=== PATIENT | male | born 1960 | race Caucasian/White ===

== ENCOUNTER 2017-03-10 10:06 | Emergency (ER) | payer BC ==
[2017-03-10 10:23] VITALS: BP 136/86
--- NOTE | 2017-03-10 11:15 | UC ---
General HPI - HPI Summary HPI Summary: FOR THE PAST SEVERAL WEEKS PT HAS NOTICED THAT AFTER 2-3 BITES OF FOOD HIS THROAT WILL BECOME TIGHT AND HE GETS THE HICCUPS. FOOD GOES DOWN - IS NOT GETTING STUCK BUT HE HAS TO LEAN FORWARD WHEN IT HAPPENS AND WAIT FOR A FEW MINUTES UNTIL IT PASSES BEFORE HE CAN EAT AGAIN. HAPPENS MOSTLY WITH HOT COOKED FOODS. NOT SO MUCH WITH LIQUIDS. - History of Current Complaint Chief Complaint: UCGI Stated Complaint: DIFFICULTY SWALLOWING Time Seen by Provider: 03/10/17 10:45 Hx Obtained From: Patient Onset/Duration: Gradual Onset, Lasting Weeks, Still Present Timing: Intermittent Episodes Lasting: Onset Severity: Moderate Current Severity: None Pain Intensity: 0 - NO PAIN AT PRESENT Associated Signs & Symptoms: Negative: Abdominal Pain, Back Pain, Cough, Decreased Oral Intake, Fever, Nausea, Wheezing - Allergy/Home Medications Allergies/Adverse Reactions: Allergies Allergy/AdvReac Type Severity Reaction Status Date / Time No Known Allergies Allergy Verified 03/10/17 10:23 Home Medications: Home Medications Canagliflozin (NF) [Invokana (NF)] 100 mg PO 03/10/17 [History] PMH/Surg Hx/FS Hx/Imm Hx Endocrine History Of: Reports: Diabetes - Type 2 diabetes Denies: Thyroid Disease Cardiovascular History Of: Denies: Cardiac Disorders, Hypertension Respiratory History Of: Reports: Asthma Denies: COPD GI/ History Of: Denies: Ulcer - Surgical History Surgical History: Yes Surgery Procedure, Year, and Place: Left lung lobectomy - Family History Known Family History: Positive: Diabetes - Social History Alcohol Use: Rare Substance Use Type: None Smoking Status (MU): Never Smoked Tobacco Review of Systems Constitutional: Negative Respiratory: Negative Cardiovascular: Negative Gastrointestinal: Other - DYSPHAGIA All Other Systems Reviewed And Are Negative: Yes Physical Exam Triage Information Reviewed: Yes Appearance: Well-Appearing, No Pain Distress, Well-Nourished Vital Signs: Initial Vital Signs Temp 98.5 F 03/10/17 10:13 Pulse 72 03/10/17 10:13 Resp 16 03/10/17 10:13 BP 136/86 03/10/17 10:13 Pulse Ox 98 03/10/17 10:13 Vital Signs Reviewed: Yes Eyes: Positive: Conjunctiva Clear ENT: Positive: Hearing grossly normal, Pharynx normal. Negative: Trismus Neck: Positive: Supple, Nontender, No Lymphadenopathy Respiratory: Positive: No respiratory distress, No accessory muscle use Cardiovascular: Positive: Pulses Normal Abdomen Description: Positive: Nontender, Soft Musculoskeletal: Positive: No Edema Neurological: Positive: Alert Psychological: Positive: Age Appropriate Behavior Skin: Negative: rashes Course/Dx - Differential Dx - Multi-Symptom Differential Diagnoses: Other - ESOPHAGEAL STRICTURE, ESOPHAGEAL SPASM, ESOPHAGEAL CANDIDIASIS, REFLUX, GASTRITIS Provider Diagnoses: DYSPHAGIA Discharge - Discharge Plan Condition: Stable Disposition: HOME Prescriptions: Esomeprazole(NF) [NexIUM(NF)] 40 mg PO DAILY #30 cap Patient Education Materials: Dysphagia (ED) Referrals: Regulo Sellers MD [Primary Care Provider] - If Needed Eric Perez MD [Medical Doctor] - 2 Weeks Additional Instructions: UNCLEAR ETIOLOGY OF YOUR SYMPTOMS. CONSIDER REFLUX VS. ESOPHAGEAL INVOLVEMENT. TAKE THE REFLUX MEDICINE IN THE MORNING (IDEALLY AT LEAST 30 MINUTES BEFORE YOU EAT). EAT SLOWLY. STAY UPRIGHT AT LEAST 30 MINUTES AFTER EATING. EAT SMALLER, MORE FREQUENT MEALS OPPOSED TO LARGE INFREQUENT MEALS. AVOID POSSIBLE TRIGGER FOODS - GREASY, SPICY, ACIDIC FOODS. CAFFEINE, ALCOHOL. KEEP A SYMPTOM DIARY TO SEE IF A TRIGGER CAN BE IDENTIFIED. KEEP YOUR ENT APPT NEXT WEEK. CALL GI TO SCHEDULE A FOLLOW-UP APPT WITHIN THE NEXT 2 WEEKS. YOU MAY BENEFIT FROM AN EGD TO EVALUATE FOR ANY PATHOLOGY IN YOUR ESOPHAGUS OR STOMACH. GO TO THE ER WITHOUT FAIL IF YOU ARE UNABLE TO GET SOLIDS OR LIQUIDS DOWN, IF YOU BECOME SHORT OF BREATH, DIZZY OR DEVELOP ANY OTHER CONCERNING SYMPTOMS.
== END 2017-03-10 11:27 | disposition home or self-care (01) ==
LOC: UCEAST 10:06
DX: R13.10 Dysphagia, unspecified (principal); E11.9 Type 2 diabetes mellitus without complications; J45.909 Unspecified asthma, uncomplicated
CPT/HCPCS: 99212; G0463

== ENCOUNTER 2017-05-01 13:07 | Emergency (ER) | payer BC ==
[2017-05-01 15:43] VITALS: BP 112/76
--- NOTE | 2017-05-01 16:14 | UC ---
Abdominal Pain Male HPI - HPI Summary HPI Summary: Pt recently dx with esophageal CA. Has been seen by Dr. Savage and also travelled to [facility] [facility] in [place]. Had PET scan over a week ago, and since then has been having terrible nausea. Saw Dr. Savage 5 days ago and was rx zofran. Hasn't had a BM since and nausea persists. Would like some relief of both of these symptoms. No focal abdominal pain or fever. Feels the urge to have a BM but nothing comes. Is having some "spitting up" when he tries to eat. - History of Current Complaint Chief Complaint: UCGI Stated Complaint: NAUSEA CONSTIPATION Time Seen by Provider: 05/01/17 15:39 Hx Obtained From: Patient Onset/Duration: Gradual Onset, Lasting Days Timing: Constant Severity Initially: Moderate Severity Currently: Mild Location: Diffuse Radiates: No Character: Cramping Aggravating Factor(s):: Food Alleviating Factor(s): Rest Associated Signs And Symptoms: Positive: Constipation, Vomiting - Allergies/Home Medications Allergies/Adverse Reactions: Allergies Allergy/AdvReac Type Severity Reaction Status Date / Time No Known Allergies Allergy Verified 05/01/17 13:33 PMH/Surg Hx/FS Hx/Imm Hx Other Cancer History: esophageal CA - Surgical History Surgical History: Yes Surgery Procedure, Year, and Place: Left lung lobectomy - Family History Known Family History: Positive: Diabetes - Social History Lives: With Family Alcohol Use: None Substance Use Type: None Smoking Status (MU): Never Smoked Tobacco Review of Systems Constitutional: Negative Skin: Negative Eyes: Negative ENT: Negative Respiratory: Negative Cardiovascular: Negative Gastrointestinal: Abdominal Pain, Vomiting Genitourinary: Negative Motor: Negative Neurovascular: Negative Musculoskeletal: Negative Neurological: Negative Psychological: Negative All Other Systems Reviewed And Are Negative: Yes Physical Exam Triage Information Reviewed: Yes Appearance: Well-Appearing, No Pain Distress, Well-Nourished Vital Signs: Initial Vital Signs Temp 99.2 F 05/01/17 13:28 Pulse 99 05/01/17 13:28 Resp 16 05/01/17 13:28 BP 118/73 05/01/17 13:28 Pulse Ox 99 05/01/17 13:28 Vital Signs Reviewed: Yes Eye Exam: Normal Eyes: Positive: Conjunctiva Clear ENT Exam: Normal ENT: Positive: Normal ENT inspection, Hearing grossly normal, Pharynx normal, TMs normal. Negative: Tonsillar swelling, Other: Dental Exam: Normal Neck exam: Normal Neck: Positive: Supple, Nontender, No Lymphadenopathy Respiratory Exam: Normal Respiratory: Positive: Chest non-tender, Lungs clear, Normal breath sounds, No respiratory distress, No accessory muscle use Cardiovascular Exam: Normal Cardiovascular: Positive: RRR - 80s on exam, No Murmur Abdomen Description: Positive: Nontender, Soft, Other: - dullness to percussion over transverse and descending colon. Negative: CVA Tenderness (R), CVA Tenderness (L) Musculoskeletal Exam: Normal Neurological Exam: Normal Neurological: Positive: Alert Psychological Exam: Normal Skin Exam: Normal Abd Pain Male Course/Dx - Differential Dx/Clinical Impression Provider Diagnoses: nausea. constipation due to medication usage Discharge - Discharge Plan Condition: Stable Disposition: HOME Prescriptions: Prochlorperazine TAB* [Compazine Tab*] 10 mg PO Q8H PRN #15 tab PRN Reason: Nausea Patient Education Materials: Constipation (ED) Referrals: Regulo Sellers MD [Primary Care Provider] - Ezekiel Savage MD [Medical Doctor] - Additional Instructions: As we discussed, your constipation should improve now that you have stopped the zofran. To help relieve the back-up of stool, I recommend you use a fleet enema today and repeat tomorrow as needed. You should also start polyethylene glycol ( "Miralax" or generic alternative) -- mix 1 capful into 8 ounces of liquid 3 times per day until you start having soft and sizeable stools; you can cut back to once per day for at least a week once you are having regular, comfortable bowel movements before you stop completely. Continue to follow up with your care providers about your nausea and ongoing treatment plan.
== END 2017-05-01 16:16 | disposition home or self-care (01) ==
LOC: UCEAST 13:07
DX: R11.0 Nausea (principal); K59.03 Drug induced constipation; T45.0X5A Adverse effect of antiallergic and antiemetic drugs, initial encounter; C15.9 Malignant neoplasm of esophagus, unspecified
CPT/HCPCS: 99211; G0463

== ENCOUNTER 2017-05-19 16:55 | Inpatient (IN) | payer BC ==
[2017-05-19] MEDS ORDERED: NS 0.9% 1000 ML* 1,000 ML IV ONE (17:41)
[2017-05-19 18:17] LABS: Hematocrit 43 % (42-52); Hemoglobin 14.3 g/dl (14.0-18.0); Mean Corpuscular HGB Conc 33 g/dl (31-36); Mean Corpuscular Hemoglobin 28 pg (27-31); Mean Corpuscular Volume 86 fL (80-94); Mean Platelet Volume 9 um3 (7.4-10.4); Red Blood Count 5.03 10^6/ul (4.0-5.4); Red Cell Distribution Width 14 % (10.5-15); White Blood Count 16.7 10^3/ul (3.5-10.8)
[2017-05-19 18:18] LABS: Add Diff/Slide Review? Slide Review Added; Comments Flag Yes
[2017-05-19 18:36] LABS: ALT 32 U/L (7-52); Albumin 3.1 g/dL (3.2-5.2); Alkaline Phosphatase 76 U/L (34-104); BUN/Creatinine Ratio 25.4 (8-20); Blood Urea Nitrogen 17 mg/dL (6-24); CO2 Carbon Dioxide 23 mmol/L (22-32); Calcium 8.9 mg/dL (8.6-10.3); Chloride 102 mmol/L (101-111); EGFR African American 157.2 (>60); EGFR Non-African American 122.3 (>60); Globulin 3.7 g/dL (2-4); Glucose 122 mg/dL (70-100); Sodium 137 mmol/L (133-145); Total Protein 6.8 g/dL (6.4-8.9)
[2017-05-19 18:38] LABS: Anion Gap 12 mmol/L (2-11)
[2017-05-19] MEDS ORDERED: Prochlorperazine TAB* 10 MG PO PRN (20:42)
[2017-05-19] MEDS ORDERED: Levalbuterol HFA INHALER* 1 PUFF MDI INH PRN (20:42)
[2017-05-19] MEDS ORDERED: Ondansetron INJ* 2 MG/ML VIAL IV PRN (20:51)
[2017-05-19] MEDS ORDERED: NS 0.9% 1000 ML* 1,000 ML IV SCH ×2 (21:00→21:13)
--- NOTE | 2017-05-19 22:25 | ED ---
Thea Capone Alfonso, scribed for Omid Blanton MD on 05/19/17 at 1810 . Complex/Multi-Sys Presentation - HPI Summary HPI Summary: This patient is a 56 year old male presenting to [facility] c/o vomiting since a few hours ago. He was diagnosed with esophageal cancer approximately 2 months ago, since which he has lost approximately 50 lb. He rates the pain 0/10 in severity. Symptoms aggravated and alleviated by nothing. He reports loss of appetite. The patient recommends to be admitted because he is planning to have his jejunostomy tube put in soon. - History Of Current Complaint Chief Complaint: EDNauseaVomitDiarrh Time Seen by Provider: 05/19/17 17:31 Hx Obtained From: Patient Onset/Duration: Sudden Onset, Lasting Hours - a few hours, Still Present Timing: Constant Severity Currently: Mild Severity Initially: Mild Aggravating Factor(s): Nothing Alleviating Factor(s): Nothing Associated Signs And Symptoms: Positive: Vomiting, Other - Positive loss of appetite Related History: Recent Illness - esophageal cancer - Allergies/Home Medications Allergies/Adverse Reactions: Allergies Allergy/AdvReac Type Severity Reaction Status Date / Time No Known Allergies Allergy Verified 05/19/17 21:50 PMH/Surg Hx/FS Hx/Imm Hx Endocrine/Hematology History: Reports: Hx Diabetes - Type 2 diabetes Denies: Hx Thyroid Disease Cardiovascular History: Denies: Hx Hypertension Respiratory History: Reports: Hx Asthma Denies: Hx Chronic Obstructive Pulmonary Disease (COPD) GI History: Denies: Hx Ulcer - Cancer History Cancer Type, Location and Year: Esoph Ca - Surgical History Surgery Procedure, Year, and Place: Left lung lobectomy Infectious Disease History: No Infectious Disease History: Denies: Hx Clostridium Difficile, Hx Hepatitis, Hx Human Immunodeficiency Virus (HIV), Hx of Known/Suspected MRSA, Hx Shingles, Hx Tuberculosis, Hx Known/ Suspected VRE, Hx Known/Suspected VRSA, History Other Infectious Disease, Traveled Outside the [place] in Last 30 Days - Family History Known Family History: Positive: Diabetes - Social History Alcohol Use: Rare Alcohol Amount: 1-2 times a year Substance Use Type: Reports: None Smoking Status (MU): Former Smoker Review of Systems Negative: Fever Positive: Vomiting Neurological: Other - Positive loss of appetite All Other Systems Reviewed And Are Negative: Yes Physical Exam Triage Information Reviewed: Yes Vital Signs On Initial Exam: Initial Vitals Temp Pulse Resp BP Pulse Ox 97.7 F 99 18 117/80 94 05/19/17 17:08 05/19/17 17:08 05/19/17 17:08 05/19/17 17:08 05/19/17 17:08 Vital Signs Reviewed: Yes Appearance: Positive: Well-Appearing, No Pain Distress Skin: Positive: Other - Skin tenting Head/Face: Positive: Normal Head/Face Inspection Eyes: Positive: Normal ENT: Positive: Other - Dry mucous membrane Neck: Positive: Supple, Nontender Respiratory/Lung Sounds: Positive: Clear to Auscultation, Breath Sounds Present Cardiovascular: Positive: RRR Abdomen Description: Positive: Nontender, Soft Bowel Sounds: Positive: Present Musculoskeletal: Positive: Normal Neurological: Positive: Normal, Sensory/Motor Intact, Alert, Oriented to Person Place, Time, CN Intact II-III Psychiatric: Positive: Affect/Mood Appropriate - Ramses Coma Scale Coma Scale Total: 15 Diagnostics - Vital Signs Vital Signs Temp Pulse Resp BP Pulse Ox 05/19/17 17:26 90 96 05/19/17 17:11 97.7 F 99 20 117/80 95 05/19/17 17:08 97.7 F 99 18 117/80 94 - Laboratory Lab Results: Lab Results 05/19/17 05/19/17 05/19/17 Range/Units 18:00 18:00 19:35 WBC 16.7 H (3.5-10.8) 10^3/ul RBC 5.03 (4.0-5.4) 10^6/ul Hgb 14.3 (14.0-18.0) g/dl Hct 43 (42-52) % MCV 86 (80-94) fL MCH 28 (27-31) pg MCHC 33 (31-36) g/dl RDW 14 (10.5-15) % Plt Count 255 (150-450) 10^3/ul MPV 9 (7.4-10.4) um3 Neut % (Auto) 82.0 (38-83) % Lymph % (Auto) 7.6 L (25-47) % [place] % (Auto) 9.7 H (1-9) % Eos % (Auto) 0.4 (0-6) % Baso % (Auto) 0.3 (0-2) % Absolute Neuts (auto) 13.7 H (1.5-7.7) 10^3/ul Absolute Lymphs (auto) 1.3 (1.0-4.8) 10^3/ul Absolute Monos (auto) 1.6 H (0-0.8) 10^3/ul Absolute Eos (auto) 0.1 (0-0.6) 10^3/ul Absolute Basos (auto) 0.1 (0-0.2) 10^3/ul Absolute Nucleated RBC 0.01 10^3/ul Nucleated RBC % 0 Sodium 137 (133-145) mmol/L Potassium TNP 3.6 Chloride 102 (101-111) mmol/L Carbon Dioxide 23 (22-32) mmol/L Anion Gap 12 H (2-11) mmol/L BUN 17 (6-24) mg/dL Creatinine 0.67 (0.67-1.17) mg/dL Est GFR ( Amer) 157.2 (>60) Est GFR (Non-Af Amer) 122.3 (>60) BUN/Creatinine Ratio 25.4 H (8-20) Glucose 122 H (70-100) mg/dL Calcium 8.9 (8.6-10.3) mg/dL Total Bilirubin 1.00 (0.2-1.0) mg/dL AST TNP 20 ALT 32 (7-52) U/L Alkaline Phosphatase 76 (34-104) U/L Total Protein 6.8 (6.4-8.9) g/dL Albumin 3.1 L (3.2-5.2) g/dL Globulin 3.7 (2-4) g/dL Albumin/Globulin Ratio 0.8 L (1-3) Result Diagrams: 05/19/17 18:00 05/19/17 19:35 Lab Statement: Any lab studies that have been ordered have been reviewed, and results considered in the medical decision making process. Complex Multi-Symp Course/Dx Course Of Treatment: Mr. Vail has not been able to eat and is scheduled to have a J-tube placement. He came in quite dehydrated and with a leukocytosis. I asked the hopitalists to evaluate him for rehydration. - Diagnoses Provider Diagnoses: Severe dehydration - Physician Notifications Discussed Care Of Patient With: Ezekiel Savage Time Discussed With Above Provider: 19:43 Instructed by Provider To: Other - Consulted Dr. Savage (Oncologist) to discuss plan. Dr. Aguilar (hospitalist) agrees to admit. Discharge - Discharge Plan Condition: Stable Disposition: ADMITTED TO [facility] documentation as recorded by the Thea hutchins Alfonso accurately reflects the service I personally performed and the decisions made by me, Omid Blanton MD.
[2017-05-20] MEDS: Heparin VIAL(*) 5000 UNITS/ML VIAL (FIVE THOUSAND) SUBCUT SCH ×4 (00:40→21:00)
[2017-05-20] MEDS: Mometasone/Formoter 200/5 MDI INH SCH ×3 (00:40→20:11)
--- NOTE | 2017-05-20 07:58 | HP ---
CC: Dr. Sellers; Dr. Savage * HISTORY AND PHYSICAL: DATE OF ADMISSION: 05/19/17 CHIEF COMPLAINT: "I haven't been able to keep anything down." HISTORY OF PRESENT ILLNESS: The patient is a 56-year-old gentleman who approximately 2 months ago was diagnosed with esophageal cancer, which is apparently stage III, and over the last week he has not been able to keep anything down at all. If he tries to eat it, he gets nauseous and vomits it up. He was at the surgeon's office today getting evaluated for a J-tube. When he discussed what was going on, the surgeon sent him over to the ED for possible admission because of dehydration, poor p.o. intake, and intractable nausea and vomiting. He denies fevers and chills. He says he has lost over 60 pounds in just the last 2-1/2 months. PAST MEDICAL HISTORY: He has a past medical history that is noted for stage III esophageal cancer, asthma, and diabetes mellitus which he says has resolved since he has had all that weight loss. CURRENT MEDICATIONS: 1. Compazine 10 mg every 8 hours as needed. 2. Xopenex 2 puffs inhaled 4 tabs a day as needed. 3. Advair Diskus 1 puff inhaled twice daily. ALLERGIES: He has no known drug allergies. FAMILY HISTORY: Reviewed and noncontributory. SOCIAL HISTORY: No tobacco. Rare alcohol. No recreational drug use. He is on disability. 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 He has 1 child. REVIEW OF SYSTEMS: A 14-point review of systems was completed with the patient. All pertinent positives and negatives are in the history of present illness, otherwise it is negative. PHYSICAL EXAMINATION GENERAL: A very pleasant gentleman, lying in bed, in no acute distress. VITAL SIGNS: His temperature is 98.7 degrees, heart rate is 83 beats per minute , respiratory rate 17 breaths per minute, pulse ox 97%, blood pressure 117/72. HEENT: Normocephalic, atraumatic. Pupils equal, round, and reactive to light. He has got dry mucous membranes. NECK: Supple. No JVD, bruits, palpable thyroid, or lymphadenopathy. CHEST: Clear to auscultation and percussion bilaterally. CARDIOVASCULAR: S1, S2 appreciated. ABDOMEN: Positive bowel sounds in all 4 quadrants. Soft, nontender, nondistended. EXTREMITIES: No cyanosis, clubbing, or edema. +2 peripheral pulses bilaterally. NEURO: Alert and oriented x3. Moves all extremities. SKIN: No rashes or abnormalities. LABORATORY DATA: White count 16.7, hemoglobin 14.3, hematocrit 43, platelets 255. Sodium is 137, potassium 3.6, chloride 102, CO2 23, BUN 17, creatinine 0.67 , glucose is 122. ASSESSMENT AND PLAN: 1. Intractable nausea and vomiting, dehydration, and poor p.o. intake. We will admit the patient to medical service, hydrate aggressively with normal saline at 100 mL an hour. Will see Surgery in the morning. Likely J-tube placement in the next 1 to 2 days. 2. Esophageal cancer. Management as per Oncology. 3. Chronic obstructive pulmonary disease. Continue levalbuterol and Advair for it. 4. DVT prophylaxis: Heparin subcu. 5. FEN: NPO, fluids as noted. 6. The patient is a full code. TIME SPENT: Over 75 minutes were spent on this H and P, more than 40 minutes were spent in direct [id number] contact with the patient on evaluation, physical exam, and counseling and coordination of care. [id number]/[facility] #: [id number] [place]
[2017-05-20 08:00] LABS: Urine Bacteria Absent (Absent); Urine Bilirubin Negative (Negative); Urine Glucose Negative (Negative); Urine Nitrite Negative (Negative)
[2017-05-20] MEDS ORDERED: Pneumococcal Vac Polyvalent* 0.5 ML VIAL IM ONE (09:00)
--- NOTE | 2017-05-20 09:59 | PN ---
Progress Note - Progress Note Date of Service: 05/20/17 SOAP: Subjective: vomits up even minor liquids but still interested in taking in gingerale. denies abdominal pain. nausea only with trying to eat. Objective: Vital Signs Temp Pulse Resp BP Pulse Ox 98.8 F 87 16 96/48 97 05/20/17 07:31 05/20/17 07:31 05/20/17 08:00 05/20/17 07:31 05/20/17 07:31 sitting up in bed in nad perr eomi op dry cta bl s1 s2 nl soft nt +Bs no le edema A+O x 3, nonfocal neurological exam Laboratory Results - last 24 hr 05/19/17 05/19/17 05/19/17 18:00 18:00 19:35 WBC 16.7 H RBC 5.03 Hgb 14.3 Hct 43 MCV 86 MCH 28 MCHC 33 RDW 14 Plt Count 255 MPV 9 Neut % (Auto) 82.0 Lymph % (Auto) 7.6 L [place] % (Auto) 9.7 H Eos % (Auto) 0.4 Baso % (Auto) 0.3 Absolute Neuts (auto) 13.7 H Absolute Lymphs (auto) 1.3 Absolute Monos (auto) 1.6 H Absolute Eos (auto) 0.1 Absolute Basos (auto) 0.1 Absolute Nucleated RBC 0.01 Nucleated RBC % 0 Sodium 137 Potassium TNP 3.6 Chloride 102 Carbon Dioxide 23 Anion Gap 12 H BUN 17 Creatinine 0.67 Est GFR ( Amer) 157.2 Est GFR (Non-Af Amer) 122.3 BUN/Creatinine Ratio 25.4 H Glucose 122 H Calcium 8.9 Total Bilirubin 1.00 AST TNP 20 ALT 32 Alkaline Phosphatase 76 Total Protein 6.8 Albumin 3.1 L Globulin 3.7 Albumin/Globulin Ratio 0.8 L Urine Color Urine Appearance Urine pH Ur Specific [place] Urine Protein Urine Ketones Urine Blood Urine Nitrate Urine Bilirubin Urine Urobilinogen Ur Leukocyte Esterase Urine WBC (Auto) Urine RBC (Auto) Urine Bacteria Urine Glucose Urine Ascorbic Acid 05/20/17 07:30 WBC RBC Hgb Hct MCV MCH MCHC RDW Plt Count MPV Neut % (Auto) Lymph % (Auto) [place] % (Auto) Eos % (Auto) Baso % (Auto) Absolute Neuts (auto) Absolute Lymphs (auto) Absolute Monos (auto) Absolute Eos (auto) Absolute Basos (auto) Absolute Nucleated RBC Nucleated RBC % Sodium Potassium Chloride Carbon Dioxide Anion Gap BUN Creatinine Est GFR ( Amer) Est GFR (Non-Af Amer) BUN/Creatinine Ratio Glucose Calcium Total Bilirubin AST ALT Alkaline Phosphatase Total Protein Albumin Globulin Albumin/Globulin Ratio Urine Color Faye Urine Appearance Cloudy Urine pH 6.0 Ur Specific [place] 1.030 Urine Protein 1+(30 mg/dl) H Urine Ketones 2+ H Urine Blood Negative Urine Nitrate Negative Urine Bilirubin Negative Urine Urobilinogen Positive H Ur Leukocyte Esterase Negative Urine WBC (Auto) Absent Urine RBC (Auto) Absent Urine Bacteria Absent Urine Glucose Negative Urine Ascorbic Acid * H Heparin Sodium (Porcine) (Heparin Vial(*)) 5,000 units SUBCUT Q8HR [facility] Last Admin: 05/20/17 06:30 Dose: Not Given Potassium Chloride/Sodium Chloride (Ns 0.9% W/ 20 Meq Kcl 1000 Ml*) 1,000 mls @ 125 mls/hr IV PER RATE [place] Levalbuterol HCl (Xopenex Hfa Inhaler*) 2 puff INH QID PRN PRN Reason: SOB/WHEEZING Mometasone Furoate/Formoterol Fumar (Dulera 200/5 Mdi*) 2 puff INH BID [place] PRN Reason: Protocol Last Admin: 05/20/17 08:41 Dose: 1 puff Ondansetron HCl (Zofran Inj*) 4 mg IV Q4H PRN PRN Reason: NAUSEA Prochlorperazine (Compazine Tab*) 10 mg PO Q8H PRN PRN Reason: NAUSEA Assessment: 56 yo M w locally advanced esophageal CA, diagnosed in late February, who is still "deciding" on a plan of action, admitted with poor PO intake, vomiting, and dehydration in the setting of a mostly obstructing distant esophageal mass. Andrea is very clear today that he is prepared for a j-tube, but does not want to make any decisions on further treatment of his esophageal CA until he gets nutritionally balanced. He has poor IV access and I have recommended a port, which he would need for treatment, but he is refusing at this time. Plan: -US guided IV placement -suspect severe protein calorie malnutrition due to inability to take POs, will check prealbumin -hypokalemia: from poor PO intake, will replete IV and check magnesium -pending surgery consult re:J-tube placement MICHAEL -NPO except ice chips -prn zofran -subc heparin DVT prophylaxis
[2017-05-20 10:40] LABS: Hematocrit 39 % (42-52); Hemoglobin 12.6 g/dl (14.0-18.0); Mean Corpuscular HGB Conc 33 g/dl (31-36); Mean Corpuscular Hemoglobin 28 pg (27-31); Mean Corpuscular Volume 86 fL (80-94); Mean Platelet Volume 9 um3 (7.4-10.4); Red Blood Count 4.53 10^6/ul (4.0-5.4); Red Cell Distribution Width 14 % (10.5-15); White Blood Count 15.4 10^3/ul (3.5-10.8)
[2017-05-20 11:00] LABS: Albumin 2.8 g/dL (3.2-5.2); BUN/Creatinine Ratio 24.6 (8-20); Calcium 8.4 mg/dL (8.6-10.3); EGFR African American 162.8 (>60); EGFR Non-African American 126.6 (>60); Globulin 3.2 g/dL (2-4); Magnesium 1.8 mg/dL (1.9-2.7); Potassium 3.4 mmol/L (3.5-5.0); Total Bilirubin 0.9 mg/dL (0.2-1.0)
[2017-05-20] MEDS: NS 0.9% w/ 20 Meq KCL 1000 ML* 1,000 ML IV SCH ×2 (11:21→19:41)
--- NOTE | 2017-05-20 12:08 | CONSULT ---
Consult Consult: CC: need for J-tube placement HPI: This is a 56 yo M with esophageal ca dx'd in March who needs feeding tube. He has had 60 # wt loss in 2.5 mos and now reports not even tolerating liquids. I saw him in the [facility] office yesterday to discuss lap J-tube placement but based on his clinical status I recommended admission to [facility]. I had discussed lap J-tube placement which is his preference, but I explained that I do not feel there is an advantage over open J-tube placement in his situation. He was admitted yesterday and feel somewhat better after IVF. He is voiding every few hours and now wants to try marianne-jacey. PMH: esophageal ca (stage 3), asthma, h/o obesity with DM2 PSH:left lung lobectomy as . Meds: Active Medications Generic Name Dose Route Start Last Admin Trade Name Freq PRN Reason Stop Dose Admin Heparin Sodium (Porcine) 5,000 units 05/19/17 22:00 05/20/17 06:30 Heparin Vial(*) SUBCUT Not Given Q8HR [place] Potassium Chloride/Sodium Chloride 1,000 mls @ 125 mls/hr 05/20/17 10:00 11:21 Ns 0.9% W/ 20 Meq Kcl 1000 Ml* IV 125 mls/hr PER RATE [place] Administration Levalbuterol HCl 2 puff 05/19/17 20:42 Xopenex Hfa Inhaler* INH QID PRN SOB/WHEEZING Mometasone Furoate/Formoterol Fumar 2 puff 05/19/17 21:00 05/20/17 08:41 Dulera 200/5 Mdi* INH 1 puff BID [place] Administration Protocol Ondansetron HCl 4 mg 05/19/17 20:51 Zofran Inj* IV Q4H PRN NAUSEA Prochlorperazine 10 mg 05/19/17 20:42 Compazine Tab* PO Q8H PRN NAUSEA NKDA SH: no tob/EtOH/drugs. . PE: Vital Signs Temp 98.8 F 05/20/17 07:31 Pulse 87 05/20/17 07:31 Resp 16 05/20/17 08:00 BP 96/48 05/20/17 07:31 Pulse Ox 97 05/20/17 07:31 Gen: cachectic, ill appearing, but in NAD Abd: no scars; scaphoid; soft; ND; NT Laboratory Results - last 24 hr 05/19/17 05/19/17 05/19/17 18:00 18:00 19:35 WBC 16.7 H RBC 5.03 Hgb 14.3 Hct 43 MCV 86 MCH 28 MCHC 33 RDW 14 Plt Count 255 MPV 9 Neut % (Auto) 82.0 Lymph % (Auto) 7.6 L [place] % (Auto) 9.7 H Eos % (Auto) 0.4 Baso % (Auto) 0.3 Absolute Neuts (auto) 13.7 H Absolute Lymphs (auto) 1.3 Absolute Monos (auto) 1.6 H Absolute Eos (auto) 0.1 Absolute Basos (auto) 0.1 Absolute Nucleated RBC 0.01 Nucleated RBC % 0 Sodium 137 Potassium TNP 3.6 Chloride 102 Carbon Dioxide 23 Anion Gap 12 H BUN 17 Creatinine 0.67 Est GFR ( Amer) 157.2 Est GFR (Non-Af Amer) 122.3 BUN/Creatinine Ratio 25.4 H Glucose 122 H Calcium 8.9 Magnesium Cancelled Total Bilirubin 1.00 AST TNP 20 ALT 32 Alkaline Phosphatase 76 Total Protein 6.8 Albumin 3.1 L Globulin 3.7 Albumin/Globulin Ratio 0.8 L Prealbumin Cancelled Urine Color Urine Appearance Urine pH Ur Specific [place] [employer] Urine Protein Urine Ketones Urine Blood Urine Nitrate Urine Bilirubin Urine Urobilinogen Ur Leukocyte Esterase Urine WBC (Auto) Urine RBC (Auto) Urine Bacteria Urine Glucose Urine Ascorbic Acid 05/20/17 05/20/17 05/20/17 07:30 10:25 10:25 WBC 15.4 H RBC 4.53 Hgb 12.6 L Hct 39 L MCV 86 MCH 28 MCHC 33 RDW 14 Plt Count 222 MPV 9 Neut % (Auto) 83.0 Lymph % (Auto) 6.4 L [place] % (Auto) 9.3 H Eos % (Auto) 0.7 Baso % (Auto) 0.6 Absolute Neuts (auto) 12.8 H Absolute Lymphs (auto) 1.0 Absolute Monos (auto) 1.4 H Absolute Eos (auto) 0.1 Absolute Basos (auto) 0.1 Absolute Nucleated RBC 0 Nucleated RBC % 0 Sodium 139 Potassium 3.4 L Chloride 106 Carbon Dioxide 22 Anion Gap 11 BUN 16 Creatinine 0.65 L Est GFR ( Amer) 162.8 Est GFR (Non-Af Amer) 126.6 BUN/Creatinine Ratio 24.6 H Glucose 128 H Calcium 8.4 L Magnesium 1.8 L Total Bilirubin 0.90 AST 21 ALT 29 Alkaline Phosphatase 74 Total Protein 6.0 L Albumin 2.8 L Globulin 3.2 Albumin/Globulin Ratio 0.9 L Prealbumin Urine Color Faye Urine Appearance Cloudy Urine pH 6.0 Ur Specific [place] [employer] 1.030 Urine Protein 1+(30 mg/dl) H Urine Ketones 2+ H Urine Blood Negative Urine Nitrate Negative Urine Bilirubin Negative Urine Urobilinogen Positive H Ur Leukocyte Esterase Negative Urine WBC (Auto) Absent Urine RBC (Auto) Absent Urine Bacteria Absent Urine Glucose Negative Urine Ascorbic Acid * H Impression: 56 yo M with dysphagia due to stage 3 esophageal ca with malnutrition in need of feeding tube placement. A feeding jejunostomy tube has been requested. Plan: I discussed with the patient that I will not be available to place the feeding tube until the week after next. I recommended that one of my partners place the j-tube sooner and Dr. Hughes has OR availability tomorrow. He is agreeable. Will order nutrition consult. Case discussed with Dr. Flores. [facility] office will manage feeding.
[2017-05-21] MEDS: NS 0.9% w/ 20 Meq KCL 1000 ML* 1,000 ML IV SCH ×2 (03:50→17:11)
[2017-05-21] MEDS: Heparin VIAL(*) 5000 UNITS/ML VIAL (FIVE THOUSAND) SUBCUT SCH ×3 (04:26→22:54)
[2017-05-21] MEDS ORDERED: Dexamethasone IV* 4 MG/ML 1 ML (4 MG) ONE ×2 (07:46→11:14)
[2017-05-21] MEDS ORDERED: Famotidine IV* 10 MG/ML 2 ML (20 mg) IV ONE (08:00)
[2017-05-21] MEDS ORDERED: Dexamethasone IV* 8 MG in NS 0.9% 50 ML* 50 ML IVPB ONE (08:00)
[2017-05-21] MEDS: Mometasone/Formoter 200/5 MDI INH SCH ×2 (09:17→21:12)
[2017-05-21] MEDS ORDERED: fentaNYL* 50 MCG/ML 2 ML VIAL (100 MCG VIAL) ONE ×2 (09:58→12:18)
[2017-05-21] MEDS ORDERED: KETAMINE HCL* 50 MG/ML 10 ML VIAL ONE (09:58)
[2017-05-21] MEDS ORDERED: Midazolam* 1 MG/ML 5 ML VIAL (5 MG) ONE (09:58)
--- NOTE | 2017-05-21 10:06 | PN ---
Progress Note - Progress Note Date of Service: 05/21/17 SOAP: Subjective: []Feeling fine. No pain. Aware of plan. Curious about process for setting up tube feedings at home. Mother and by bedside. Mother asks about nursing services. Poor PO intake and infrequent firm BMs. Not really passing gas. Denies reflux , though small amt. of "spit up." Medications: Heparin Sodium (Porcine) (Heparin Vial(*)) 5,000 units SUBCUT Q8HR [facility] Last Admin: 05/21/17 04:26 Dose: Not Given Potassium Chloride/Sodium Chloride (Ns 0.9% W/ 20 Meq Kcl 1000 Ml*) 1,000 mls @ 125 mls/hr IV PER RATE [facility] Last Admin: 05/21/17 03:50 Dose: 125 mls/hr Levalbuterol HCl (Xopenex Hfa Inhaler*) 2 puff INH QID PRN PRN Reason: SOB/WHEEZING Mometasone Furoate/Formoterol Fumar (Dulera 200/5 Mdi*) 2 puff INH BID [facility] PRN Reason: Protocol Last Admin: 05/21/17 09:17 Dose: Not Given Ondansetron HCl (Zofran Inj*) 4 mg IV Q4H PRN PRN Reason: NAUSEA Prochlorperazine (Compazine Tab*) 10 mg PO Q8H PRN PRN Reason: NAUSEA Objective: [] Vital Signs Temp Pulse Resp BP Pulse Ox 98.4 F 83 16 114/58 97 05/20/17 23:39 05/20/17 23:39 05/20/17 23:39 05/20/17 23:39 05/20/17 23:39 A&Ox3, EOMI, FARIAS HRR, S1S2, no murmur noted LS clear bilat. with even, non-labored respirations +BS, abd. soft and non-tender Laboratory Results - last 24 hr 05/19/17 05/20/17 05/20/17 19:35 10:25 10:25 WBC 15.4 H RBC 4.53 Hgb 12.6 L Hct 39 L MCV 86 MCH 28 MCHC 33 RDW 14 Plt Count 222 MPV 9 Neut % (Auto) 83.0 Lymph % (Auto) 6.4 L [place] % (Auto) 9.3 H Eos % (Auto) 0.7 Baso % (Auto) 0.6 Absolute Neuts (auto) 12.8 H Absolute Lymphs (auto) 1.0 Absolute Monos (auto) 1.4 H Absolute Eos (auto) 0.1 Absolute Basos (auto) 0.1 Absolute Nucleated RBC 0 Nucleated RBC % 0 Sodium 139 Potassium 3.4 L Chloride 106 Carbon Dioxide 22 Anion Gap 11 BUN 16 Creatinine 0.65 L Est GFR ( Amer) 162.8 Est GFR (Non-Af Amer) 126.6 BUN/Creatinine Ratio 24.6 H Glucose 128 H POC Glucose (mg/dL) Calcium 8.4 L Magnesium Cancelled 1.8 L Total Bilirubin 0.90 AST 21 ALT 29 Alkaline Phosphatase 74 Total Protein 6.0 L Albumin 2.8 L Globulin 3.2 Albumin/Globulin Ratio 0.9 L Prealbumin Cancelled 10 L Assessment: []56 yo old male with clinical stage IIIB esophageal cancer admitted r/t malnutrition with planned J-tube placement today. Plan: []1. Protein-caloric malnutrition: secondary to poor PO intake r/t dysphagia from esophageal tumor, J-tube placement with Dr. Hughes today. Spool Salvager to help start feedings and will plan d/c tomorrow if equipment possible. 2. Esophageal Cancer: recommendation for neoadjuvant chemo/XRT, pt. still considering
[2017-05-21] MEDS ORDERED: ceFAZolin 2 GM PREMIX(*) 2 GM/50 ML BAG IVPB ONE (10:16)
[2017-05-21] MEDS ORDERED: metroNIDAZOLE IV 500 MG/100ML* 500 MG/100 ML BAG IVPB ONE (10:16)
[2017-05-21] MEDS ORDERED: Bupivacaine 0.25% EPI 200,000* 30 ML SDV ONE (10:33)
--- NOTE | 2017-05-21 10:33 | PN ---
Progress Note - Progress Note Date of Service: 05/21/17 Note: Surgery Asked by Dr. Oewn to place open J-tube in pt. with esophageal cancer. Mr. Vail is a 56 y.o. male who was recently dx'd with esophageal cancer; he has been unable to tolerate food and has had significant weight loss. He is accepting of a J-tube. I have met with and examined him and discussed the nature of the surgery, its risks, benefits, and alternatives. He understands and agrees to proceed. Festus
[2017-05-21] MEDS ORDERED: Lidocaine 2% PF * 5 ML VIAL ONE (11:14)
[2017-05-21] MEDS ORDERED: Neostigmine Methylsulfate* 2 MG/2 ML SYRINGE ONE (11:14)
[2017-05-21] MEDS ORDERED: Glycopyrrolate IV* 0.2 MG/ML 1 ML VIAL ONE (11:14)
[2017-05-21] MEDS ORDERED: PROCHLORPERAZINE INJ 5 MG/ML 2 ML VIAL ONE (11:14)
[2017-05-21] MEDS ORDERED: Propofol* 10 MG/ML 20 ML BTL IV PUSH ONE (11:14)
[2017-05-21] MEDS ORDERED: Morphine INJ* 10 MG/ML 1 ML SYRINGE ONE (11:15)
--- NOTE | 2017-05-21 12:00 | PN ---
Progress Note - Progress Note Date of Service: 05/21/17 Note: Brief Operative Note: Pre-op: Hx esophageal cancer Post-op: Same Procedure: Open placement of juejunostomy tube Surgeon: Dr. Hughes Walnut Dehydrator Operator: Jaylyn Johnston PA-S EBL: Minimal Anaesthesia: GETA Fluids: 1000cc LR Drains: None Catheter: J-tube Findings: See dictated op note
[2017-05-21] MEDS ORDERED: Morphine INJ* 2 MG/ML 1 ML SYRINGE IV PRN (12:18)
[2017-05-21] MEDS ORDERED: oxyCODONE/Acetamin 5/325 MG* TAB PO PRN (12:18)
[2017-05-21] MEDS ORDERED: PROCHLORPERAZINE INJ 5 MG/ML 2 ML VIAL IV PRN (12:18)
[2017-05-21] MEDS: fentaNYL* 50 MCG/ML 2 ML VIAL (100 MCG VIAL) IV PRN ×3 (12:23→12:38)
[2017-05-21] MEDS: HYDROmorphone* 1 MG/ML 1 ML SYR IV SLOW PU PRN ×2 (13:28→17:40)
[2017-05-21] MEDS ORDERED: HYDROmorphone* 1 MG/ML 1 ML SYR IV PRN (14:16)
[2017-05-21] MEDS: HYDROmorphone* 1 MG/ML 1 ML SYR IV PRN ×2 (14:30→22:14)
[2017-05-22] MEDS: NS 0.9% w/ 20 Meq KCL 1000 ML* 1,000 ML IV SCH ×3 (01:14→21:55)
[2017-05-22] MEDS: HYDROmorphone* 1 MG/ML 1 ML SYR IV PRN ×8 (01:23→22:36)
[2017-05-22] MEDS: Heparin VIAL(*) 5000 UNITS/ML VIAL (FIVE THOUSAND) SUBCUT SCH ×5 (05:33→22:48)
--- NOTE | 2017-05-22 08:22 | PN ---
Progress Note - Progress Note Date of Service: 05/22/17 Note: Afeb, VS OK. Mild abd pain around incision. No N/V. Had some bloating and pressure overnight. TF turned off at the time, back on now. Incis clean, small bloody drainage. Increase feeds as nikole, disch home when nikole.
--- NOTE | 2017-05-22 08:34 | PN ---
Progress Note - Progress Note Date of Service: 05/22/17 SOAP: Subjective: c/o significant discomfort at the PEG site. 1.5 mg of dilaudid "puts me right to sleep". 1 mg q3 hrs does not seem to last. deferring shortening of the interval. feels bloated with feeds at 20 cc. no pain. no nausea. just bloated ("like I might get constipated") so requested to go back to 10 cc/hr. Objective: Vital Signs Temp Pulse Resp BP Pulse Ox 98.2 F 73 20 113/59 98 05/22/17 07:29 05/22/17 07:29 05/22/17 08:26 05/22/17 07:29 05/22/17 07:29 Exam: patient refused "Dr. Paulino just examined me and he is a very good doctor. Please don't touch me" labs:pending Heparin Sodium (Porcine) (Heparin Vial(*)) 5,000 units SUBCUT Q8HR [facility] Last Admin: 05/22/17 07:20 Dose: 5,000 units Hydromorphone HCl (Dilaudid Iv*) 0.5 mg IV SLOW PU Q4H PRN PRN Reason: PAIN - MODERATE TO SEVERE Last Admin: 05/21/17 17:40 Dose: 0.5 mg Hydromorphone HCl (Dilaudid Iv*) 0.5 mg IV Q2H PRN PRN Reason: PAIN Hydromorphone HCl (Dilaudid Iv*) 1 mg IV Q2H PRN PRN Reason: PAIN Last Admin: 05/22/17 08:26 Dose: 1 mg Potassium Chloride/Sodium Chloride (Ns 0.9% W/ 20 Meq Kcl 1000 Ml*) 1,000 mls @ 125 mls/hr IV PER RATE [facility] Last Admin: 05/22/17 01:14 Dose: 125 mls/hr Famotidine 20 mg/ Sodium (Chloride) 102 mls @ 408 mls/hr IVPB DAILY [facility] Levalbuterol HCl (Xopenex Hfa Inhaler*) 2 puff INH QID PRN PRN Reason: SOB/WHEEZING Mometasone Furoate/Formoterol Fumar (Dulera 200/5 Mdi*) 2 puff INH BID [place] PRN Reason: Protocol Last Admin: 05/21/17 21:12 Dose: 2 puff Ondansetron HCl (Zofran Inj*) 4 mg IV Q4H PRN PRN Reason: NAUSEA Prochlorperazine (Compazine Tab*) 10 mg PO Q8H PRN PRN Reason: NAUSEA ASSESSMENT: 56 yo M w locally advanced esophageal CA, diagnosed in late February, who is still "deciding" on a plan of action, admitted with poor PO intake, vomiting, and dehydration in the setting of a mostly obstructing distant esophageal mass. He is now sp j-tube placement yesterday. We discussed that he may have some bloating with feeding initially, but if there is not pain or nausea we should continue to uptitrate feeds. He will think about that. He does not want to increase dilaudid dosing or interval. -uptitrate feeds as patient tolerates/allows -cont dilaudid at current levels -check labs today (on NS w kcl) -anticipate discharge next week at this point
[2017-05-22 08:49] LABS: Hematocrit 37 % (42-52); Hemoglobin 12.2 g/dl (14.0-18.0); Mean Corpuscular HGB Conc 33 g/dl (31-36); Mean Corpuscular Hemoglobin 28 pg (27-31); Mean Corpuscular Volume 85 fL (80-94); Mean Platelet Volume 9 um3 (7.4-10.4); Red Blood Count 4.35 10^6/ul (4.0-5.4); Red Cell Distribution Width 14 % (10.5-15); White Blood Count 14.8 10^3/ul (3.5-10.8)
[2017-05-22 08:50] LABS: Add Diff/Slide Review? Slide Review Added; Comments Flag Yes
[2017-05-22 09:07] LABS: Albumin 2.4 g/dL (3.2-5.2); BUN/Creatinine Ratio 16.4 (8-20); Calcium 8.2 mg/dL (8.6-10.3); EGFR African American 197.5 (>60); EGFR Non-African American 153.5 (>60); Globulin 2.9 g/dL (2-4); Magnesium 1.6 mg/dL (1.9-2.7); Potassium 3.6 mmol/L (3.5-5.0); Total Protein 5.3 g/dL (6.4-8.9)
[2017-05-22] MEDS ORDERED: Magnesium Sulfate 2 GM IV* 2 GM/50 ML BAG IVPB ONE (09:15)
[2017-05-22] MEDS: Mometasone/Formoter 200/5 MDI INH SCH ×2 (09:24→20:33)
--- NOTE | 2017-05-22 15:24 | OP ---
CC: [facility]; Dr. Regulo Sellers. OPERATIVE REPORT: DATE OF OPERATION: 05/21/17 DATE OF : 58 SURGEON: Una Hughes MD SALES LEDGER ADMINISTRATOR: JOANNE Samaniego and Kyle. PRE-OP DIAGNOSIS: Inanition. POST-OP DIAGNOSIS: Inanition. OPERATIVE PROCEDURE: Feeding jejunostomy tube placement. INDICATIONS: Mr. Vail is a 56-year-old male with esophageal cancer, unable to eat. He has been losing weight, who has agreed to feeding jejunostomy tube placement. DESCRIPTION OF PROCEDURE: He was brought to the operating room, placed on the OR table in the supin e position and given general anesthesia. The abdomen was then prepped and draped in the usual steri le fashion. After infiltrating with local anesthetic, an incision was made along the midline and iraheta bcutaneous tissue was divided with electrocautery down to the level of the fascia which was incised and the abdomen was entered. The incision was extended a little and then a brief exploration was un dertaken. The ligament of Treitz was immediately identified, but to ensure directionality of the loc wel, it was eviscerated down to the terminal ileum and then replaced in the abdomen, a point on the jejunum about 30 cm distal to the ligament of Treitz was chosen for the jejunostomy. The tube itsel f was then brought into the abdomen through a stab wound and the anterior abdominal wall after infil trating with local anesthetic. A pursestring suture was placed on the jejunum and a point of the j ejunostomy and then a small opening was made. The feeding tube was advanced through the opening and the jejunum distally until most of the length of the tubing was in the jejunum. The pursestring wa s secured and then the tube was witzeled along the jejunum slightly proximally using 3-0 silk suture s. Then, using 2-0 Polysorb, the jejunum was brought up to the anterior abdominal wall and secured with the 2-0 Polysorb circumferentially around the point of entry into the Witzel tunnel. Once the tube was secured to the anterior abdominal wall, closure was accomplished. This was done with #1 Bi osyn in a continuous fashion. The anchor of the tube was secured to the abdominal wall with 3-0 Miguelina gipro and then the skin was closed with mohan. A Steri-Strip was placed on the jejunal tube to ma rk its position against the anchor on the skin. All sponge and instrument counts were correct. The patient tolerated the procedure well and was transferred to the recovery in a stable condition. [id number]/[facility] #: [id number]
[2017-05-23] MEDS: HYDROmorphone* 1 MG/ML 1 ML SYR IV PRN ×9 (02:03→22:15)
[2017-05-23] MEDS: NS 0.9% w/ 20 Meq KCL 1000 ML* 1,000 ML IV SCH ×2 (05:50→19:26)
[2017-05-23] MEDS: Heparin VIAL(*) 5000 UNITS/ML VIAL (FIVE THOUSAND) SUBCUT SCH ×3 (05:52→22:27)
[2017-05-23 08:45] LABS: Hematocrit 38 % (42-52); Hemoglobin 12.4 g/dl (14.0-18.0); Mean Corpuscular HGB Conc 33 g/dl (31-36); Mean Corpuscular Hemoglobin 28 pg (27-31); Mean Corpuscular Volume 85 fL (80-94); Mean Platelet Volume 9 um3 (7.4-10.4); Red Blood Count 4.43 10^6/ul (4.0-5.4); Red Cell Distribution Width 14 % (10.5-15); White Blood Count 11.8 10^3/ul (3.5-10.8)
[2017-05-23] MEDS: Mometasone/Formoter 200/5 MDI INH SCH ×2 (08:48→19:28)
[2017-05-23 09:02] LABS: BUN/Creatinine Ratio 10.2 (8-20); Calcium 7.8 mg/dL (8.6-10.3); EGFR African American 182.1 (>60); EGFR Non-African American 141.6 (>60); Magnesium 1.7 mg/dL (1.9-2.7); Potassium 3.7 mmol/L (3.5-5.0)
[2017-05-23] MEDS ORDERED: Magnesium Sulf 4 GM/100 ML IV* 4,000 MG/100 ML BAG IVPB ONE (09:07)
--- NOTE | 2017-05-23 10:19 | PN ---
Progress Note - Progress Note Date of Service: 05/23/17 SOAP: Subjective: This is a 56 yo white male with PMH stage 3 esophageal CA s/p 2 days J-tube placement, DM, and asthma admitted on 05/19 with nausea and vomiting and >60 pound weight loss in 3 months. Denies and nausea/vomiting since then. Admits to abdominal pain and pain around J-tube insertion site that is managed with Dilaudid. Admits to pain with respirations, coughing, movement, and with uptitrating tube feedings related to J-tube. Denies chest pain, sweats/chills, HOLT. Active Medications: Heparin Sodium (Porcine) (Heparin Vial(*)) 5,000 units SUBCUT Q8HR [facility] Last Admin: 05/23/17 05:52 Dose: 5,000 units Hydromorphone HCl (Dilaudid Iv*) 0.5 mg IV SLOW PU Q4H PRN PRN Reason: PAIN - MODERATE TO SEVERE Last Admin: 05/21/17 17:40 Dose: 0.5 mg Hydromorphone HCl (Dilaudid Iv*) 0.5 mg IV Q2H PRN PRN Reason: PAIN Hydromorphone HCl (Dilaudid Iv*) 1 mg IV Q2H PRN PRN Reason: PAIN Last Admin: 05/23/17 08:53 Dose: 1 mg Potassium Chloride/Sodium Chloride (Ns 0.9% W/ 20 Meq Kcl 1000 Ml*) 1,000 mls @ 125 mls/hr IV PER RATE [facility] Last Admin: 05/23/17 05:50 Dose: 125 mls/hr Famotidine 20 mg/ Sodium (Chloride) 102 mls @ 408 mls/hr IVPB DAILY [facility] Last Admin: 05/23/17 10:14 Dose: 408 mls/hr Magnesium Sulfate (Magnesium Sulf 4 Gm/100 Ml Iv*) 4,000 mg in 100 mls @ 33.333 mls/hr IVPB ONCE ONE Stop: 05/23/17 12:06 Levalbuterol HCl (Xopenex Hfa Inhaler*) 2 puff INH QID PRN PRN Reason: SOB/WHEEZING Mometasone Furoate/Formoterol Fumar (Dulera 200/5 Mdi*) 2 puff INH BID [place] PRN Reason: Protocol Last Admin: 05/23/17 08:48 Dose: 2 puff Ondansetron HCl (Zofran Inj*) 4 mg IV Q4H PRN PRN Reason: NAUSEA Prochlorperazine (Compazine Tab*) 10 mg PO Q8H PRN PRN Reason: NAUSEA Allergies Allergy/AdvReac Type Severity Reaction Status Date / Time No Known Allergies Allergy Verified 05/19/17 21:50 Objective: Vital Signs Temp Pulse Resp BP Pulse Ox 98.2 F 86 14 112/62 96 05/23/17 07:54 05/23/17 08:49 05/23/17 08:53 05/23/17 07:54 05/23/17 08:49 General: 56 yo white male laying stagnant in hospital bed in moderate pain. HEENT: Atraumatic, normocephalic, PEERLA. Lungs: Chest is symmetric and clear to auscultation throughout. Heart: RRR. S1 and S2 split heard, No JVD, No murmurs, rubs, or gallops. Abdomen: J-tube site without leakage or erythema or warmth. Abdomen very tender with hypoactive bowel sounds throughout. Extremities: No edema with pulses intact 2+ bilaterally. Lab Results: WBC 11.8 10^3/ul (3.5-10.8) H 05/23/17 08:31 RBC 4.43 10^6/ul (4.0-5.4) 05/23/17 08:31 Hgb 12.4 g/dl (14.0-18.0) L 05/23/17 08:31 Hct 38 % (42-52) L 05/23/17 08:31 MCV 85 fL (80-94) 05/23/17 08:31 MCH 28 pg (27-31) 05/23/17 08:31 MCHC 33 g/dl (31-36) 05/23/17 08:31 RDW 14 % (10.5-15) 05/23/17 08:31 Plt Count 202 10^3/ul (150-450) 05/23/17 08:31 MPV 9 um3 (7.4-10.4) 05/23/17 08:31 Neut % (Auto) 79.3 % (38-83) 05/23/17 08:31 Lymph % (Auto) 9.1 % (25-47) L 05/23/17 08:31 [place] % (Auto) 10.5 % (1-9) H 05/23/17 08:31 Eos % (Auto) 0.7 % (0-6) 05/23/17 08:31 Baso % (Auto) 0.4 % (0-2) 05/23/17 08:31 Absolute Neuts (auto) 9.3 10^3/ul (1.5-7.7) H 05/23/17 08:31 Absolute Lymphs (auto) 1.1 10^3/ul (1.0-4.8) 05/23/17 08:31 Absolute Monos (auto) 1.2 10^3/ul (0-0.8) H 05/23/17 08:31 Absolute Eos (auto) 0.1 10^3/ul (0-0.6) 05/23/17 08:31 Absolute Basos (auto) 0.1 10^3/ul (0-0.2) 05/23/17 08:31 Absolute Nucleated RBC 0 10^3/ul 05/23/17 08:31 Nucleated RBC % 0 05/23/17 08:31 Sodium 136 mmol/L (133-145) 05/23/17 08:31 Potassium 3.7 mmol/L (3.5-5.0) 05/23/17 08:31 Chloride 104 mmol/L (101-111) 05/23/17 08:31 Carbon Dioxide 25 mmol/L (22-32) 05/23/17 08:31 Anion Gap 7 mmol/L (2-11) 05/23/17 08:31 BUN 6 mg/dL (6-24) 05/23/17 08:31 Creatinine 0.59 mg/dL (0.67-1.17) L 05/23/17 08:31 Est GFR ( Amer) 182.1 (>60) 05/23/17 08:31 Est GFR (Non-Af Amer) 141.6 (>60) 05/23/17 08:31 BUN/Creatinine Ratio 10.2 (8-20) 05/23/17 08:31 Glucose 116 mg/dL (70-100) H 05/23/17 08:31 POC Glucose (mg/dL) 132 mg/dL (74-106) H 05/21/17 09:39 Calcium 7.8 mg/dL (8.6-10.3) L 05/23/17 08:31 Magnesium 1.7 mg/dL (1.9-2.7) L 05/23/17 08:31 Total Bilirubin 1.00 mg/dL (0.2-1.0) 05/22/17 08:43 AST 12 U/L (13-39) L 05/22/17 08:43 ALT 22 U/L (7-52) 05/22/17 08:43 Alkaline Phosphatase 57 U/L (34-104) 05/22/17 08:43 Total Protein 5.3 g/dL (6.4-8.9) L 05/22/17 08:43 Albumin 2.4 g/dL (3.2-5.2) L 05/22/17 08:43 Globulin 2.9 g/dL (2-4) 05/22/17 08:43 Albumin/Globulin Ratio 0.8 (1-3) L 05/22/17 08:43 Prealbumin 10 mg/dL (18-38) L 05/20/17 10:25 Urine Color Faye 05/20/17 07:30 Urine Appearance Cloudy 05/20/17 07:30 Urine pH 6.0 (5-9) 05/20/17 07:30 Ur Specific [place] 1.030 (1.010-1.030) 05/20/17 07:30 Urine Protein 1+(30 mg/dl) (Negative) H 05/20/17 07:30 Urine Ketones 2+ (Negative) 05/20/17 07:30 Urine Blood Negative (Negative) 05/20/17 07:30 Urine Nitrate Negative (Negative) 05/20/17 07:30 Urine Bilirubin Negative (Negative) 05/20/17 07:30 Urine Urobilinogen Positive (Negative) H 05/20/17 07:30 Ur Leukocyte Esterase Negative (Negative) 05/20/17 07:30 Urine WBC (Auto) Absent (Absent) 05/20/17 07:30 Urine RBC (Auto) Absent (Absent) 05/20/17 07:30 Urine Bacteria Absent (Absent) 05/20/17 07:30 Urine Glucose Negative (Negative) 05/20/17 07:30 Urine Ascorbic Acid * (Negative) 05/20/17 07:30 Assessment/Plan: This is a 56 yo white male with PMH stage 3 esophageal CA s/p 2 days J-tube placement, DM, and asthma admitted on 05/19 with nausea and vomiting and >60 pound weight loss in 3 months. 1) Esophageal CA stage 3 s/p J-tube placement: Manage pain with Dilaudid and famotidine for reflux. Continue with uptitrating feeds as tolerated. Hypomagnesia at 1.7, repeat order for mag sulfate. Repeat BMP to monitor electrolytes. Followed by oncology for advance esophageal CA diagnosed in February, he is still undecided about plan of action for treatment. 2) DM: States he manages it without use of medications at home. No recent hemoglobin A1C. 3) Asthma: Cont Xopenex and dulera. 4) DVT Prophylaxis: SQ Heparin. 5) Code Status: Full code Status: Inpatient.
[2017-05-23] MEDS ORDERED: HYDROmorphone* 1 MG/ML 1 ML SYR IV SLOW PU PRN (11:15)
--- NOTE | 2017-05-23 11:23 | PN ---
Subjective Date of Service: 05/23/17 Interval History: This is a 56 yo gentleman with obstructing esophageal malignancy who was admitted for poor oral intake and intractable vomiting who is now POD #2 s/p J- tube placement. Patient has been reluctant to advance his feeding rate due to feelings of bloating. He complained of pain last night after the rate had been titrated to 40 ml/h and feedings were stopped at that time. He denied associated n/v. They have been resumed again this am at a rate of 10 ml/h. He reports no BM. He had a mild productive cough this am, denies SOB. He is utilizing IV Dilaudid frequently. Denies any additional complaints. Objective Active Medications: Heparin Sodium (Porcine) (Heparin Vial(*)) 5,000 units SUBCUT Q8HR [facility] Last Admin: 05/23/17 05:52 Dose: 5,000 units Hydromorphone HCl (Dilaudid Iv*) 1 mg IV Q2H PRN PRN Reason: PAIN Last Admin: 05/23/17 08:53 Dose: 1 mg Hydromorphone HCl (Dilaudid Iv*) 1.5 mg IV SLOW PU Q4H PRN PRN Reason: PAIN Potassium Chloride/Sodium Chloride (Ns 0.9% W/ 20 Meq Kcl 1000 Ml*) 1,000 mls @ 125 mls/hr IV PER RATE [facility] Last Admin: 05/23/17 05:50 Dose: 125 mls/hr Famotidine 20 mg/ Sodium (Chloride) 102 mls @ 408 mls/hr IVPB DAILY [facility] Last Admin: 05/23/17 10:14 Dose: 408 mls/hr Magnesium Sulfate (Magnesium Sulf 4 Gm/100 Ml Iv*) 4,000 mg in 100 mls @ 33.333 mls/hr IVPB ONCE ONE Stop: 05/23/17 12:06 Last Admin: 05/23/17 10:52 Dose: 33.333 mls/hr Levalbuterol HCl (Xopenex Hfa Inhaler*) 2 puff INH QID PRN PRN Reason: SOB/WHEEZING Mometasone Furoate/Formoterol Fumar (Dulera 200/5 Mdi*) 2 puff INH BID [place] PRN Reason: Protocol Last Admin: 05/23/17 08:48 Dose: 2 puff Ondansetron HCl (Zofran Inj*) 4 mg IV Q4H PRN PRN Reason: NAUSEA Prochlorperazine (Compazine Tab*) 10 mg PO Q8H PRN PRN Reason: NAUSEA Vital Signs: Temp Pulse Resp BP Pulse Ox 98.2 F 86 14 112/62 96 05/23/17 07:54 05/23/17 08:49 05/23/17 08:53 05/23/17 07:54 05/23/17 08:49 Oxygen Devices in Use Now: None Appearance: Well appearing middle aged gentleman in NAD Respiratory: Symmetrical Chest Expansion and Respiratory Effort, Clear to Auscultation Cardiovascular: NL Sounds; No Murmurs; No JVD, RRR Abdominal: - - J tube in place, incision site looks clear, no drainage or surrounding erythema, bowel sounds present Extremities: No Edema Skin: No Rash or Ulcers Neurological: Alert and Oriented x 3 Result Diagrams: 05/23/17 08:31 05/23/17 08:31 Additional Lab and Data: . Assess/Plan/Problems-Billing Assessment: This is a 56 yo gentleman with an obstructing esophageal malignancy now s/p J tube placement. - Patient Problems (1) Primary esophageal malignancy Comment: Obstructing mass, unable to tolerate anything orally Now POD #2 s/p J tube placement with Dr Hughes Having difficulty tolerating feedings, but no clinical evidence of obstruction Further treatment of malignancy per primary oncology team (2) Cough Comment: This seems to be mild, no need for imaging or empiric treatment at the moment Discussed concept of atelectasis and use of incentive spirometer (3) Asthma Comment: No exacerbation Cont home inhaled medications (4) Hypomagnesemia Comment: Cont to replete as necessary (5) Full code status (6) DVT prophylaxis Comment: SCDs Status and Disposition: Inpatient. Anticipate need for several additional days of inpatient treatment
--- NOTE | 2017-05-23 11:44 | PN ---
Progress Note - Progress Note Date of Service: 05/23/17 SOAP: Subjective: His tube feeds were up to 40 cc/h last night but he developed some abdominal pain Held for several hours and he seems to be doing well with the rate at 20cc/h now No N/V and he has passed some flatus Objective: Temp Pulse Resp BP Pulse Ox 98.2 F 86 14 112/62 96 05/23/17 07:54 05/23/17 08:49 05/23/17 11:25 05/23/17 07:54 05/23/17 08:49 PEX: Abd is soft and non-distended. Bowel sounds are present J-tube site intact--no drainage, midline incision covered with gauze Assessment: S/P j-tube placement--some intolerance to increase in rate of feeds. Plan: Start TF's again at 20cc/hr and advance as tolerated.
[2017-05-24] MEDS: HYDROmorphone* 1 MG/ML 1 ML SYR IV PRN ×4 (00:32→11:11)
[2017-05-24] MEDS ORDERED: Famotidine IV* 10 MG/ML 2 ML (20 mg) ONE (08:21)
[2017-05-24] MEDS: Heparin VIAL(*) 5000 UNITS/ML VIAL (FIVE THOUSAND) SUBCUT SCH ×3 (08:44→21:47)
[2017-05-24] MEDS: Mometasone/Formoter 200/5 MDI INH SCH ×2 (08:44→20:31)
[2017-05-24] MEDS ORDERED: Sodium Phosphate ADULT ENEMA* 118 ml bottle PR ONE (11:20)
[2017-05-24] MEDS ORDERED: HYDROmorphone* 1 MG/ML 1 ML SYR IV SLOW PU PRN (11:22)
--- NOTE | 2017-05-24 12:29 | PN ---
Progress Note - Progress Note Date of Service: 05/24/17 SOAP: Subjective: - Patient appears comfortable in bed - c/o pain adjacent to midline incision site - Denies nausea, vomiting, bloating or distended. - Reports no bowel movements. Could not recall if any flatus. Objective: - Heart regular rhythm and slightly tarchycardic, lungs clear to auscultation. - Abdomen: soft, non-distended, tenderness around the incision with palpation, hypoactive bowel sound present, no guarding. Vital Signs - 8 hr 05/24/17 05/24/17 05/24/17 08:10 08:43 09:43 Temperature 97.8 F Pulse Rate 106 Respiratory 16 18 18 Rate Blood Pressure 101/64 (mmHg) O2 Sat by Pulse 91 Oximetry 05/24/17 11:11 Temperature Pulse Rate Respiratory 16 Rate Blood Pressure (mmHg) O2 Sat by Pulse Oximetry Intake & Output 05/22/17 05/23/17 05/24/17 05/25/17 06:59 06:59 06:59 06:59 Intake Total 6222 6059 3973 Output Total 2300 2185 2175 200 Balance 3922 3874 1798 -200 Intake: IV Fluids 3320 3740 2974 LR 900 NS 20meQ K 2370 3538 2772 NS 50ML, Cefazolin 2G 50 mag 100 100 pepcid 102 102 IVPB 52 121 644 NS 20meQ K 121 644 dexamethasone 52 Oral 2730 1805 Tube Feeding 80 368 265 Tube Feeding Flush Amount 40 25 90 Output: Urine 2300 2185 2175 200 Tube Feeding Residual 0 0 Amount Wasted Other: Estimated Void Medium Medium # Bowel Movements 0 0 # Voids 2 3 1 Assessment: This is a 56-year old gentleman POD#3 s/p open J-tube placement. - Patient is improving and tolerating clear liquid well, tolerating up to 40 cc/ hr tube feeding. - Pain control: pain moderately controlled - Hydration status: patient well hydrated through PO intake Plan: - Advance to full liquid diet as tolerated - Advance tube feeding as tolerated with the goal of 80 cc/hr. - Discontinue IV fluids.
--- NOTE | 2017-05-24 12:45 | PN ---
Progress Note - Progress Note Date of Service: 05/24/17 Note: Surgery Progress: S: POD #3. Patient seen w/ PA student. Note from onco PA reviewed. Pain improving (being transitioned to po meds). Denies N/V. Thinks he's been passing flatus, though isn't sure. No BM x 1 wk, but also states he does not feel constipated. Nikole current TFs at 40 cc/hr (goal rate of 80). Ambulating. O: Vital Signs - 8 hr 05/24/17 05/24/17 05/24/17 08:10 08:43 09:43 Temperature 97.8 F Pulse Rate 106 Respiratory 16 18 18 Rate Blood Pressure 101/64 (mmHg) O2 Sat by Pulse 91 Oximetry 05/24/17 11:11 Temperature Pulse Rate Respiratory 16 Rate Blood Pressure (mmHg) O2 Sat by Pulse Oximetry Intake and Output Last 24 Hours 05/22/17 05/23/17 05/24/17 05/25/17 06:59 06:59 06:59 06:59 Intake Total 6222 6059 3973 Output Total 2300 2185 2175 200 Balance 3922 3874 1798 -200 Intake: IV Fluids 3320 3740 2974 LR 900 NS 20meQ K 2370 3538 2772 NS 50ML, Cefazolin 2G 50 mag 100 100 pepcid 102 102 IVPB 52 121 644 NS 20meQ K 121 644 dexamethasone 52 Oral 2730 1805 Tube Feeding 80 368 265 Tube Feeding Flush Amount 40 25 90 Output: Urine 2300 2185 2175 200 Tube Feeding Residual 0 0 Amount Wasted Other: Estimated Void Medium Medium # Bowel Movements 0 0 # Voids 2 3 1 Heart: reg, mildly tachy Lungs: clear Abd: BS+ (somewhat hypoactive); flat, nondistended; incision and J-tube site are clean; no signs of infection; moderately tender to palp, mostly at midline incision. (He is fairly anxious.) A/P: s/p Jejunostomy feeding tube, making progress. Will cont to adv feedings as nikole. Asking to adv po diet as well, which should be ok, but patient/ advised to go slowly. Agree w/ transition to po pain meds. Poss d/c home 05/25. Will set up office f/u.
[2017-05-24] MEDS: HYDROmorphone TAB* 4 MG PO PRN ×3 (14:07→21:46)
[2017-05-24] MEDS ORDERED: Magnesium CITRATE* 300 ML BTL PO ONE (16:13)
[2017-05-25] MEDS: HYDROmorphone TAB* 4 MG PO PRN ×3 (02:17→10:46)
[2017-05-25] MEDS: Heparin VIAL(*) 5000 UNITS/ML VIAL (FIVE THOUSAND) SUBCUT SCH ×2 (05:28→14:58)
[2017-05-25 06:31] LABS: ALT 47 U/L (7-52); AST 48 U/L (13-39); Albumin 2.2 g/dL (3.2-5.2); Alkaline Phosphatase 63 U/L (34-104); BUN/Creatinine Ratio 12.7 (8-20); Blood Urea Nitrogen 7 mg/dL (6-24); CO2 Carbon Dioxide 32 mmol/L (22-32); Calcium 7.7 mg/dL (8.6-10.3); Chloride 100 mmol/L (101-111); EGFR African American 197.5 (>60); EGFR Non-African American 153.5 (>60); Globulin 2.7 g/dL (2-4); Glucose 179 mg/dL (70-100); Potassium 3.9 mmol/L (3.5-5.0); Sodium 132 mmol/L (133-145); Total Protein 4.9 g/dL (6.4-8.9)
[2017-05-25 08:22] VITALS: BP 105/62
[2017-05-25] MEDS: Mometasone/Formoter 200/5 MDI INH SCH (09:01)
--- NOTE | 2017-05-25 09:39 | PN ---
Progress Note - Progress Note Date of Service: 05/25/17 Note: Surgery Mr. Vail c/o cramping when TF up to 50 cc/hr, so has now decreased to 40cc/hr , and is tolerating. He is aware that it will take quite a while to get up to goal. Vital Signs 05/24/17 05/24/17 05/24/17 09:43 11:11 12:05 Temperature 98.3 F Pulse Rate 95 Respiratory 18 16 16 Rate Blood Pressure 94/57 (mmHg) O2 Sat by Pulse 94 Oximetry 05/24/17 05/24/17 05/24/17 14:07 15:43 15:47 Temperature 99.8 F Pulse Rate 96 Respiratory 16 16 Rate Blood Pressure 101/56 (mmHg) O2 Sat by Pulse 92 Oximetry 05/24/17 05/24/17 05/24/17 16:00 17:29 19:29 Temperature Pulse Rate Respiratory 18 20 Rate Blood Pressure (mmHg) O2 Sat by Pulse 94 Oximetry 05/24/17 05/24/17 05/24/17 19:58 20:00 20:03 Temperature 100.1 F 99.8 F Pulse Rate 94 Respiratory 20 20 Rate Blood Pressure 94/57 (mmHg) O2 Sat by Pulse 95 Oximetry 05/24/17 05/24/17 05/24/17 20:34 21:46 23:46 Temperature Pulse Rate Respiratory 20 20 Rate Blood Pressure (mmHg) O2 Sat by Pulse 93 Oximetry 05/25/17 05/25/17 05/25/17 00:00 02:17 04:17 Temperature Pulse Rate Respiratory 20 20 Rate Blood Pressure (mmHg) O2 Sat by Pulse 93 Oximetry 05/25/17 05/25/17 05/25/17 06:29 07:37 09:03 Temperature 98.2 F Pulse Rate 84 84 Respiratory 20 16 14 Rate Blood Pressure 105/62 (mmHg) O2 Sat by Pulse 92 95 Oximetry abd: soft, tender near incision Incision: clean and dry no signs infection J-tube site also clean and dry without signs infection. I placed duoderm over anchor to try to reduce drag on stitches. Intake & Output 05/24/17 05/25/17 05/25/17 22:59 06:59 14:59 Intake Total 200 0 Output Total 200 0 Balance 0 0 Intake: Oral 200 0 Output: Urine 200 0 Other: # Bowel Movements 0 Laboratory Results - last 24 hr 05/25/17 05:49 Sodium 132 L Potassium 3.9 Chloride 100 L Carbon Dioxide 32 BUN 7 Creatinine 0.55 L Est GFR ( Amer) 197.5 Est GFR (Non-Af Amer) 153.5 BUN/Creatinine Ratio 12.7 Glucose 179 H Calcium 7.7 L Total Bilirubin 0.60 AST 48 H ALT 47 Alkaline Phosphatase 63 Total Protein 4.9 L Albumin 2.2 L Globulin 2.7 Albumin/Globulin Ratio 0.8 L A/P: Doing well with slow progress on advancement of TF. Continue slow progression. [place] could come out in 5-7 days in office.
== END 2017-05-25 15:05 | disposition home health service (06) | DRG 221 ==
LOC: ED 16:55 → MED 20:53
PROVIDERS: ADMIT Internal Medicine; ATTEND Internal Medicine Hematology & Oncology
PROC: 0D1A0Z4 Bypass Jejunum to Cutaneous, Open Approach (ICD-10-PCS; principal; 2017-05-21 10:30)
DX: C15.9 Malignant neoplasm of esophagus, unspecified (principal); E46 Unspecified protein-calorie malnutrition; R64 Cachexia; R13.10 Dysphagia, unspecified; E83.42 Hypomagnesemia; K22.2 Esophageal obstruction; E86.0 Dehydration; E11.9 Type 2 diabetes mellitus without complications; J44.9 Chronic obstructive pulmonary disease, unspecified; R11.2 Nausea with vomiting, unspecified; R40.2412 Glasgow coma scale score 13-15, at arrival to emergency department; K59.00 Constipation, unspecified; E87.6 Hypokalemia; R14.0 Abdominal distension (gaseous); Z90.2 Acquired absence of lung [part of]; Z83.3 Family history of diabetes mellitus; Z87.891 Personal history of nicotine dependence; Z68.23 Body mass index [BMI] 23.0-23.9, adult
CPT/HCPCS: 36415; 80048; 80053; 81003; 81015; 83735; 84134; 85025; 90732; 94640; 94760; 99231; 99232; 99233; A9270-GY; J0690; J0780; J1100; J1170; J1644; J2250; J2270; J2704; J3010

== ENCOUNTER 2017-06-09 16:42 | Emergency (ER) | payer BC ==
[2017-06-09] MEDS ORDERED: Sodium Bicarbonate (ANTACID)* 650 MG TAB J TUBE ONE (19:00)
[2017-06-09] MEDS ORDERED: Pancrelipase CAP* 5,000 UNITS CAP J TUBE ONE (19:00)
--- NOTE | 2017-06-09 22:37 | ED ---
Virgilio Capone Alok, scribed for Omid Blanton MD on 06/09/17 at 1727 . GI/ HPI - HPI Summary HPI Summary: 56M presents to the ED due to J-tube clogged since 1330 this afternoon. Pt states that he has had his J-tube in place since 3 weeks ago and had not had any clogs before he could not resolve after 10-15 minutes. Pt states he tried using coke-a-cola to unclog his tube with no alleviation. Pt notes nausea. PMHx includes CA patient. - History of Current Complaint Chief Complaint: EDGeneral Time Seen by Provider: 06/09/17 17:17 Stated Complaint: CA PT-J TUBE BLOCKED,NAUSEA,DIZZIESS Hx Obtained From: Patient Onset/Duration: Atraumatic, Still Present Timing: Constant, Lasting Hours Severity: Moderate Current Severity: Moderate Pain Intensity: 0 Associated Signs and Symptoms: Positive: Nausea Aggravating Factor(s): Nothing Alleviating Factor(s): Nothing - Additional Pertinent History Primary Care Physician: GAIL - Allergy/Home Medications Allergies/Adverse Reactions: Allergies Allergy/AdvReac Type Severity Reaction Status Date / Time No Known Allergies Allergy Verified 05/19/17 21:50 PMH/Surg Hx/FS Hx/Imm Hx Endocrine/Hematology History: Reports: Hx Diabetes - Type 2 diabetes Denies: Hx Thyroid Disease Cardiovascular History: Denies: Hx Hypertension Respiratory History: Reports: Hx Asthma Denies: Hx Chronic Obstructive Pulmonary Disease (COPD) GI History: Reports: Other GI Disorders - Esophageal Cancer Denies: Hx Ulcer Sensory History: Reports: Hx Contacts or Glasses Denies: Hx Hearing Aid Opthamlomology History: Reports: Hx Contacts or Glasses - Cancer History Cancer Type, Location and Year: Esoph Ca Hx Chemotherapy: No Hx Radiation Therapy: No Hx Palliative Cancer Treatment: No - Surgical History Surgery Procedure, Year, and Place: Left lung lobectomy Infectious Disease History: No Infectious Disease History: Denies: Hx Clostridium Difficile, Hx Hepatitis, Hx Human Immunodeficiency Virus (HIV), Hx of Known/Suspected MRSA, Hx Shingles, Hx Tuberculosis, Hx Known/ Suspected VRE, Hx Known/Suspected VRSA, History Other Infectious Disease, Traveled Outside the [place] in Last 30 Days - Family History Known Family History: Positive: Diabetes - Social History Lives: With Family Alcohol Use: Rare Alcohol Amount: 1-2 times a year Substance Use Type: Reports: None Smoking Status (MU): Former Smoker Review of Systems Negative: Fever Positive: Nausea All Other Systems Reviewed And Are Negative: Yes Physical Exam Triage Information Reviewed: Yes Vital Signs On Initial Exam: Initial Vitals Temp Pulse Resp BP Pulse Ox 98.3 F 92 20 106/61 96 06/09/17 16:54 06/09/17 16:54 06/09/17 16:54 06/09/17 16:54 06/09/17 16:54 Vital Signs Reviewed: Yes Appearance: Positive: Well-Appearing, No Pain Distress Skin: Positive: Warm, Skin Color Reflects Adequate Perfusion, Dry Head/Face: Positive: Normal Head/Face Inspection Eyes: Positive: Normal ENT: Positive: Normal ENT inspection Neck: Positive: Supple, Nontender Respiratory/Lung Sounds: Positive: Clear to Auscultation, Breath Sounds Present Cardiovascular: Positive: RRR Abdomen Description: Positive: Nontender, Soft, Other: - J-tube in place Bowel Sounds: Positive: Present Musculoskeletal: Positive: Normal Neurological: Positive: Normal Psychiatric: Positive: Normal, Affect/Mood Appropriate - [place] Coma Scale Coma Scale Total: 15 Diagnostics - Vital Signs Vital Signs Temp Pulse Resp BP Pulse Ox 06/09/17 17:02 97.3 F 92 18 102/61 96 06/09/17 16:54 98.3 F 92 20 106/61 96 - Laboratory Lab Statement: Any lab studies that have been ordered have been reviewed, and results considered in the medical decision making process. GIGU Course/Dx - Course Course Of Treatment: Mr. Davis has the misfortune of having had to have a J- tube placed about 3 weeks ago. It has been working fine but got clogged up this afternoon. He tried instilling Coke without luck. On initial evaluation I informed him that I would consult the surgeons to see if they had any suggestions. Dr. Gonzalez was in surgery and they passed the messge on to him and he had Dr. Owen call me. He recommended a pancreatic enzyme infusion and the pharmacy was able to get us that with instruction for its use. It didn't work and Dr. Gonzalez was again contacted. He thought he would then have to change the tube and asked for a red rubber catheter which we provided. He did come down and was able to free the clog using a 3cc syringe. - Diagnoses Provider Diagnoses: Malfunctioning jejunostomy tube - Physician Notifications Discussed Care Of Patient With: Joaquin Gonzalez - Will come examine pt Time Discussed With Above Provider: 19:58 Discharge - Discharge Plan Condition: Stable Disposition: HOME Referrals: Regulo Sellers MD [Primary Care Provider] - Additional Instructions: Please follow up with your doctor The documentation as recorded by the Virgilio hutchins Alok accurately reflects the service I personally performed and the decisions made by me, Omid Blanton MD.
[2017-06-09 23:09] VITALS: BP 102/50
== END 2017-06-09 22:50 | disposition home or self-care (01) ==
LOC: ED 16:42
DX: K94.23 Gastrostomy malfunction (principal); R11.0 Nausea; Z87.891 Personal history of nicotine dependence
CPT/HCPCS: 99282; A9270-GY

== ENCOUNTER 2017-06-13 10:09 | Observation (INO) | payer BC ==
[2017-06-13 11:13] LABS: Hematocrit 39 % (42-52); Hemoglobin 12.5 g/dl (14.0-18.0); Mean Corpuscular HGB Conc 32 g/dl (31-36); Mean Corpuscular Hemoglobin 27 pg (27-31); Mean Corpuscular Volume 86 fL (80-94); Mean Platelet Volume 8 um3 (7.4-10.4); Red Blood Count 4.57 10^6/ul (4.0-5.4); Red Cell Distribution Width 14 % (10.5-15); White Blood Count 14.9 10^3/ul (3.5-10.8)
[2017-06-13 11:24] LABS: Albumin 3.2 g/dL (3.2-5.2); BUN/Creatinine Ratio 22.6 (8-20); Calcium 8.9 mg/dL (8.6-10.3); EGFR Non-African American 133.7 (>60); Globulin 3.6 g/dL (2-4); Potassium 4.2 mmol/L (3.5-5.0); Total Bilirubin 0.7 mg/dL (0.2-1.0); Total Protein 6.8 g/dL (6.4-8.9)
[2017-06-13] MEDS ORDERED: NS 0.9% 1000 ML* 1,000 ML IV ONE (13:38)
[2017-06-13] MEDS ORDERED: Acetaminophen TAB* 325 MG PO PRN (13:54)
[2017-06-13] MEDS ORDERED: Ondansetron INJ* 2 MG/ML VIAL IV PRN (13:54)
--- NOTE | 2017-06-13 14:46 | RAD ---
INDICATION: Hematemesis. COMPARISON: Comparison is made with a prior chest x-ray study from July 20, 2008. TECHNIQUE: Dual-energy PA and lateral views of the chest were obtained. FINDINGS: The heart is within normal limits in size. Mediastinal and hilar contours appear within normal limits. The lungs are hyperinflated and clear. No pleural effusion is seen. IMPRESSION: FINDINGS SUGGESTIVE OF COPD, NO EVIDENCE FOR ACUTE FINDING.
[2017-06-13] MEDS: Pantoprazole IV* 40 MG IV SCH (14:48)
[2017-06-13] MEDS ORDERED: PROCHLORPERAZINE INJ 5 MG/ML 2 ML VIAL IV PRN (14:49)
[2017-06-13] MEDS: NS 0.9% 1000 ML* 1,000 ML IV SCH (16:15)
--- NOTE | 2017-06-13 17:10 | HP ---
CC: Dr. Sellers; Dr. Savage * ADMISSION HISTORY AND PHYSICAL: DATE OF ADMISSION: 06/13/17 PRIMARY CARE PROVIDER: Dr. Sellers. PRIMARY ONCOLOGIST: Dr. Savage. ADMITTING PROVIDER: JOANNE Atkins SUPERVISING PHYSICIAN: Terrell Hutson MD * (DICTATED BY JOANNE ATKINS) CHIEF COMPLAINT: Bloody emesis. HISTORY OF PRESENT ILLNESS: This is a 56-year-old gentleman with esophageal cancer and asthma who presented to the emergency department with complaints of bloody emesis starting this morning. The patient has not initiated therapy for his primary malignancy. He has undergone thorough workup both in [place] and with Dr. Savage at our facility and has been hesitant to initiate therapy for a number of different reasons. The patient was admitted towards the end of April and discharged on 05/25/17 due to intractable nausea and vomiting, which resulted in placement of a J-tube. The patient has been on continuous tube feedings since that admission, but has been unable to tolerate anything above rate of 40 mL an hour and is unable tolerate anything orally and thus continues to lose weight. The patient reports that he is persistently nauseated, which he has tried multiple medical therapies for and none are effective. He does recall that IV Pepcid during his last hospital stay was helpful. The patient reports that yesterday he "yanked" his J-tube. He states that it was painful. He did not notice any bleeding around his tube site. He was able to put the tube back into place and has continued feedings without evidence of obstruction and the tube has been flushing appropriately. He states that he has had normal daily bowel movements and denies melena or bright red blood per rectum. He denies any cough or shortness of breath. He has really no pain per se in either his chest or abdomen. In regards to this bloody emesis, the patient is not having any nancy vomiting, but rather regurgitates frequently. He states that he has had this symptom for several months and has been unchanged since initiating the J-tube. He does not regurgitate any tube feeding contents, but rather seems to be bilious. These gastric secretions have become bloody this morning. Again, no large volume emesis or passage of clots. The patient denies any other acute illness. He states that he has been afebrile again without cough or shortness of breath. No recent nausea, vomiting , or abdominal pain. No sick contacts. PAST MEDICAL HISTORY: 1. Stage III esophageal cancer - not under active therapy at this time and followed by Dr. Savage. 2. Asthma. 3. History of diabetes but no longer requiring medication since weight loss related to his malignancy and poor oral intake. PAST SURGICAL HISTORY: 1. J-tube placement in April of 2017. 2. Lobectomy as an infant. 3. Septoplasty. HOME MEDICATIONS: 1. Advair 1 puff inhaled twice daily. 2. Dilaudid 4 mg p.o. q.4 hours as needed for pain. 3. Xopenex 2 puffs inhaled 4 times daily as needed for shortness of breath. 4. Mag citrate 1.745 g p.o. twice daily. 5. Compazine 10 mg p.o. q.8 hours as needed for nausea and vomiting. SOCIAL HISTORY: The patient lives at home with his . No regular alcohol consumption and no history of smoking. REVIEW OF SYSTEMS: As noted above in HPI. All other systems reviewed and considered negative. PHYSICAL EXAMINATION GENERAL: This is a chronically ill-appearing, middle-aged gentleman, who is in no acute distress, accompanied by his . VITAL SIGNS: Initial vitals; temperature 98.7 degrees Fahrenheit, pulse 104 beats per minute, respiratory rate 19, oxygen saturation 96% on room air, and blood pressure 110/69 mmHg. HEENT: Head is normocephalic, atraumatic. Mucous membranes are pink and moist. There is no evidence of blood in the oropharynx. NECK: Supple and free of lymphadenopathy. RESPIRATORY: Lungs are clear to auscultation without wheezes, crackles, or rhonchi. CARDIOVASCULAR: Heart has a regular rate and rhythm without murmurs, rubs, or gallops. ABDOMEN: Soft and nontender to palpation with J-tube in place. There is no bleeding or other drainage around the tube site. EXTREMITIES: No edema appreciated. DIAGNOSTIC STUDIES/LAB DATA: CBC shows white blood cell count of 14,900 with normal differential, hemoglobin is 12.5, which is near baseline, and platelet count of 358,000. Comprehensive metabolic panel is largely unremarkable with a sodium of 134 mmol/L, potassium 4.2, BUN of 14, creatinine 0.62, estimated GFR of 133, random glucose 141 mg/dL. Transaminases and total bilirubin within normal limits. IMAGING: Chest x-ray is pending. ASSESSMENT AND PLAN: This is a 56-year-old gentleman with untreated esophageal cancer, unable to tolerate anything orally, on continuous J-tube feedings at a low rate, limited by continuous nausea, who presented to the emergency department with complaints of bloody emesis. The patient will be admitted to the hospital for further evaluation and appropriate management. 1. Bloody emesis - the patient does not have large volume emesis or clots developing. Discussed the case with on-call surgeon, Dr. Owen as he gives the history of tube dislodgement yesterday that came with some associated pain and then the bleeding started this morning. Due to the location of the tube, Dr. Owen does not felt it is likely that the bleeding is related to trauma to the tube yesterday. The patient denies associated melena. Considered GI consultation for upper endoscopy, but discussed case with on-call oncologist who suggested that it would be appropriate to observe overnight and if he has continuous bleeding, consider upper endoscopy tomorrow. At this time, we will start PPI therapy, avoid antiplatelet agents and other anticoagulants. We will provide IV fluid hydration and monitor hemoglobin. 2. Leukocytosis - this appears to be fairly chronic since the end of April. He has no focal signs of infection. His chest x-ray is pending, but again no new cough or shortness of breath that would lend itself to diagnosis of pneumonia. 3. Stage III esophageal malignancy - the patient is unable to tolerate anything orally. He has not initiated therapy for this malignancy for various reasons and is followed by Dr. Savage. 4. Asthma - no evidence of acute exacerbation. Lungs are clear and he is without complaints of shortness of breath. We will continue his Advair and p.r.n. Xopenex. 5. Code status: The patient is full code. 6. DVT prophylaxis: Chemical prophylaxis will be avoided at this time due to his complaints of acute bleeding. We will place SCDs. 7. Healthcare proxy is the patient's . DISPOSITION: The patient is being admitted to observation status with complaints of bloody emesis. I anticipate possible discharge tomorrow. Oncology service will assume primary care tomorrow. JOANNE ATKINS [id number]/[facility] #: [id number] [place]
[2017-06-13 19:23] LABS: Hematocrit 35 % (42-52); Hemoglobin 11.2 g/dl (14.0-18.0)
[2017-06-13] MEDS: Mometasone/Formoter 200/5 MDI INH SCH (20:53)
[2017-06-14 05:25] LABS: Hematocrit 33 % (42-52); Hemoglobin 10.7 g/dl (14.0-18.0); Mean Corpuscular HGB Conc 33 g/dl (31-36); Mean Corpuscular Hemoglobin 28 pg (27-31); Mean Corpuscular Volume 86 fL (80-94); Mean Platelet Volume 8 um3 (7.4-10.4); Red Blood Count 3.85 10^6/ul (4.0-5.4); Red Cell Distribution Width 15 % (10.5-15); White Blood Count 13.6 10^3/ul (3.5-10.8)
[2017-06-14 05:44] LABS: BUN/Creatinine Ratio 20.3 (8-20); Calcium 8.2 mg/dL (8.6-10.3); EGFR African American 182.1 (>60); EGFR Non-African American 141.6 (>60); Potassium 3.8 mmol/L (3.5-5.0)
[2017-06-14] MEDS: NS 0.9% 1000 ML* 1,000 ML IV SCH (06:18)
[2017-06-14] MEDS: Mometasone/Formoter 200/5 MDI INH SCH (07:36)
[2017-06-14 07:57] VITALS: BP 120/63
--- NOTE | 2017-06-14 09:14 | ED ---
Bijan Capone Thomas, scribed for Aquiles Frank MD on 06/13/17 at 1257 . GI/ HPI - HPI Summary HPI Summary: The pt is a 56 y/o M with a Hx of esophageal CA presenting to the ED c/o intermittent hematemesis that began today at 03:00. He rates his current level of pain 7/10. He has been having nausea and vomiting frequently for the past two months (bile and mucus) but this is the first time he has vomited blood. The pt has a J-tube and has not eaten solid food in 3 months. He has been unable to complete chemotherapy or radiation therapy due to his poor nutrition. He reports that he can only feed 40 mL per hour form his J-tube. Pt additionally c/o pain to the J-tube site (attributed to yanking it out accidentally yesterday) and nausea. The pt denies fevers and chills. He normally sees Dr. Saavge. PMHx: esophageal CA, DM. - History of Current Complaint Chief Complaint: EDGeneral Time Seen by Provider: 06/13/17 12:39 Stated Complaint: VOMITING BLOOD Hx Obtained From: Patient, Family/Quality Control Systems Manager - is present Onset/Duration: Started Minutes Ago - today at 03:00, Still Present Timing: Intermittent Pain Intensity: 7 Associated Signs and Symptoms: Positive: Hematemesis, Nausea, Other: - POS: pain to the J-tube site. Negative: Fever, Chills Aggravating Factor(s): Food Alleviating Factor(s): Nothing - Additional Pertinent History Primary Care Physician: [id number] - Allergy/Home Medications Allergies/Adverse Reactions: Allergies Allergy/AdvReac Type Severity Reaction Status Date / Time No Known Allergies Allergy Verified 05/19/17 21:50 PMH/Surg Hx/FS Hx/Imm Hx Previously Healthy: No Endocrine/Hematology History: Reports: Hx Diabetes - Type 2 diabetes Denies: Hx Thyroid Disease Cardiovascular History: Denies: Hx Hypertension Respiratory History: Reports: Hx Asthma Denies: Hx Chronic Obstructive Pulmonary Disease (COPD) GI History: Reports: Other GI Disorders - Esophageal Cancer Denies: Hx Ulcer Sensory History: Reports: Hx Contacts or Glasses Denies: Hx Hearing Aid Opthamlomology History: Reports: Hx Contacts or Glasses - Cancer History Cancer Type, Location and Year: Esoph Ca Hx Chemotherapy: No Hx Radiation Therapy: No Hx Palliative Cancer Treatment: No - Surgical History Surgery Procedure, Year, and Place: Left lung lobectomy Infectious Disease History: No Infectious Disease History: Denies: Hx Clostridium Difficile, Hx Hepatitis, Hx Human Immunodeficiency Virus (HIV), Hx of Known/Suspected MRSA, Hx Shingles, Hx Tuberculosis, Hx Known/ Suspected VRE, Hx Known/Suspected VRSA, History Other Infectious Disease, Traveled Outside the [place] in Last 30 Days - Family History Known Family History: Positive: Diabetes - Social History Alcohol Use: Rare Alcohol Amount: 1-2 times a year Substance Use Type: Reports: None Smoking Status (MU): Former Smoker Review of Systems Constitutional: Negative Negative: Fever, Chills Eyes: Negative ENT: Negative Cardiovascular: Negative Respiratory: Negative Positive: Vomiting, Nausea, Other - POS: intermittent hematemesis (onset today at 03:00) Genitourinary: Negative Positive: Other - POS: pain to the J-tube site Skin: Negative Neurological: Negative Psychological: Normal All Other Systems Reviewed And Are Negative: Yes Physical Exam - Summary Physical Exam Summary: VITAL SIGNS: Reviewed. GENERAL: ~Patient is a pale and dehydrated male who is lying comfortable in the stretcher. ~Patient is not in any acute respiratory distress. HEAD AND FACE: No signs of trauma. ~No ecchymosis, hematomas or skull depressions. No sinus tenderness. EYES: PERRLA, EOMI x 2, No injected conjunctiva, no nystagmus. EARS: Hearing grossly intact. Ear canals and tympanic membranes are within normal limits. MOUTH: Oropharynx within normal limits. NECK: Supple, trachea is midline, no adenopathy, no JVD, no carotid bruit, no c- spine tenderness, neck with full ROM. CHEST: Symmetric, no tenderness at palpation LUNGS: Clear to auscultation bilaterally. No wheezing or crackles. CVS: Regular rate and rhythm, S1 and S2 present, no murmurs or gallops appreciated. ABDOMEN: He seems to have had some hematemesis. There is a J-tube present. Positive bowel sounds. Soft, non-tender. No signs of distention. No rebound no guarding, and no masses palpated. Bowel sounds are normal. EXTREMITIES: FROM in all major joints, no edema, no cyanosis or clubbing. NEURO: Alert and oriented x 3. No acute neurological deficits. Speech is normal and follows commands. SKIN: Dry and warm Triage Information Reviewed: Yes Vital Signs On Initial Exam: Initial Vitals Temp Pulse Resp BP Pulse Ox 98.7 F 104 19 110/69 96 06/13/17 10:12 06/13/17 10:12 06/13/17 10:12 06/13/17 10:12 06/13/17 10:12 Vital Signs Reviewed: Yes - Ramses Coma Scale Coma Scale Total: 15 Diagnostics - Vital Signs Vital Signs Temp Pulse Resp BP Pulse Ox 06/13/17 12:10 91 16 99 06/13/17 10:12 98.7 F 104 19 110/69 96 - Laboratory Lab Results: Lab Results 06/13/17 06/13/17 Range/Units 10:54 10:54 WBC 14.9 H (3.5-10.8) 10^3/ul RBC 4.57 (4.0-5.4) 10^6/ul Hgb 12.5 L (14.0-18.0) g/dl Hct 39 L (42-52) % MCV 86 (80-94) fL MCH 27 (27-31) pg MCHC 32 (31-36) g/dl RDW 14 (10.5-15) % Plt Count 358 (150-450) 10^3/ul MPV 8 (7.4-10.4) um3 Neut % (Auto) 79.2 (38-83) % Lymph % (Auto) 9.7 L (25-47) % Hunt % (Auto) 8.3 (1-9) % Eos % (Auto) 2.2 (0-6) % Baso % (Auto) 0.6 (0-2) % Absolute Neuts (auto) 11.8 H (1.5-7.7) 10^3/ul Absolute Lymphs (auto) 1.4 (1.0-4.8) 10^3/ul Absolute Monos (auto) 1.2 H (0-0.8) 10^3/ul Absolute Eos (auto) 0.3 (0-0.6) 10^3/ul Absolute Basos (auto) 0.1 (0-0.2) 10^3/ul Absolute Nucleated RBC 0.01 10^3/ul Nucleated RBC % 0 Sodium 134 (133-145) mmol/L Potassium 4.2 (3.5-5.0) mmol/L Chloride 100 L (101-111) mmol/L Carbon Dioxide 29 (22-32) mmol/L Anion Gap 5 (2-11) mmol/L BUN 14 (6-24) mg/dL Creatinine 0.62 L (0.67-1.17) mg/dL Est GFR ( Amer) 172.0 (>60) Est GFR (Non-Af Amer) 133.7 (>60) BUN/Creatinine Ratio 22.6 H (8-20) Glucose 141 H (70-100) mg/dL Calcium 8.9 (8.6-10.3) mg/dL Total Bilirubin 0.70 (0.2-1.0) mg/dL AST 9 L (13-39) U/L ALT 11 (7-52) U/L Alkaline Phosphatase 74 (34-104) U/L Total Protein 6.8 (6.4-8.9) g/dL Albumin 3.2 (3.2-5.2) g/dL Globulin 3.6 (2-4) g/dL Albumin/Globulin Ratio 0.9 L (1-3) Result Diagrams: 06/14/17 05:16 06/14/17 05:16 Lab Statement: Any lab studies that have been ordered have been reviewed, and results considered in the medical decision making process. - Radiology CXR Xray Interpretation: Positive (See Comments) - findings suggestive of COPD. No acute findings. Radiology Interpretation Completed By: Radiologist CHETAN Course/Dx - Course Assessment/Plan: The pt is a 56 y/o M with a Hx of esophageal CA presenting to the ED c/o intermittent hematemesis that began today at 03:00. He rates his current level of pain 7/10. He has been having nausea and vomiting frequently for the past two months (bile and mucus) but this is the first time he has vomited blood. The pt has a J-tube and has not eaten solid food in 3 months. He has been unable to complete chemotherapy or radiation therapy due to his poor nutrition. He reports that he can only feed 40 mL per hour form his J-tube. Pt additionally c/o pain to the J-tube site (attributed to yanking it out accidentally yesterday) and nausea. The pt denies fevers and chills. He normally sees Dr. Savage. PMHx: esophageal CA, DM. Test results show WBC 14.9, Hgb 12.5, Hct 39, Plt count 358, glucose 141. CXR reveals findings suggestive of COPD without acute findings. The patient was given IV fluids for hydration. Patient is not actively bleeding. Patient is hemodynamically stable. I discussed the case with Dr. Hutson, who accepts the pateitn for admission. I also discussed the case with Dr. Brar, who will consult for the patient if needed. Patient is hemodynamically stable and A+O x 3. - Diagnoses Differential Diagnoses - Male: Other - GI bleed, Pneumonia, bronchiectasis, GERD , Gastritis, Esophagitis. Provider Diagnoses: GI bleed, Dehydration, Weakness - Physician Notifications Discussed Care Of Patient With: Terrell Hutson Time Discussed With Above Provider: 13:41 Instructed by Provider To: Other - Dr. Hutson, hospitalist, will admit the patient. I also discussed the case with Dr. Brar, oncology, who agrees to admit. Discharge - Discharge Plan Condition: Fair Disposition: ADMITTED TO [facility] documentation as recorded by the Bijan hutchins Thomas accurately reflects the service I personally performed and the decisions made by me, Aquiles Frank MD.
[2017-06-14] MEDS: Pantoprazole IV* 40 MG IV SCH (09:32)
--- NOTE | 2017-06-15 03:09 | DS ---
CC: Dr. Savage * DISCHARGE SUMMARY: DATE OF ADMISSION: 06/13/17 DATE OF DISCHARGE: 06/14/17 ATTENDING PHYSICIAN: Dr. Brar * (DICTATED BY JOANNE BAJWA) PRINCIPAL DIAGNOSES: 1. Hematemesis, status post vomiting. 2. History of esophageal cancer. 3. Caloric malnutrition requiring a J-tube and tube feeds. 4. Cough. 5. Hypomagnesemia. 6. Primary esophageal cancer has not been treated and is currently a patient of Dr. Savage. DISCHARGE MEDICATIONS: Will include: 1. Tylenol 650 as needed for fever or pain, liquid via J-tube. 2. Kytril patch topically every 24 hours. 3. Prevacid SoluTab via J-tube daily. 4. Dilaudid as needed for pain. 5. Magnesium citrate 1.745 g via J-tube twice daily. 6. Xopenex inhaler 2 puffs inhaled 4 times daily as needed. 7. Advair Diskus 1 puff inhaled twice daily. 8. Compazine 10 mg p.o. q.8 hours p.r.n. nausea. HOSPITAL COURSE: The patient was admitted to the hospital with bloody emesis. Briefly, he is a 56-year-old gentleman with esophageal cancer and asthma, who had presented to the emergency room with bloody emesis yesterday morning and seen by the hospitalist service. He had a primary malignancy of the esophageal cancer and has undergone arduous workups at [place] and with Dr. Savage and has not initiated his therapy with Dr. Savage presently. His vomiting and inability to keep anything down necessitated the placement of a J-tube recently in the past admission and can only tolerate small amounts of continuous feedings at 40 mL/hour secondary to nausea. He did "yank" his J-tube and it was likely tender today. The current workup did include guaiac testing of his emesis which was negative. He has not had any additional episodes of emesis since his hospitalization overnight and his vital signs, hemoglobin and chemistries remain stable. Chest x-ray that was performed secondary to elevated white count was negative for any active disease. Consultation was made with Dr. Owen, who was warehouse distribution specialist for surgery regarding his J-tube placement. No additional therapy was needed per Surgery. He meets with Dr. Savage for his stage III esophageal cancer tomorrow to discuss the possibilities of active therapy; however, he again continues to be reluctant regarding his therapy secondary to his nausea. We will try him on a Kytril patch and liquid PPI which has been successful in the past to see if that controls his nausea better in an effort to keep his nutrition at least stable. JOANNE BAJWA [id number]/[facility] #: [id number] [place]
== END 2017-06-14 13:16 | disposition home or self-care (01) ==
LOC: ED 10:09 → MEDTELE 13:54
PROVIDERS: ADMIT Hospitalist; ATTEND Internal Medicine Hematology & Oncology
DX: K92.0 Hematemesis (principal); C15.9 Malignant neoplasm of esophagus, unspecified; J45.901 Unspecified asthma with (acute) exacerbation; Z93.4 Other artificial openings of gastrointestinal tract status; E11.9 Type 2 diabetes mellitus without complications; D72.829 Elevated white blood cell count, unspecified; Z87.891 Personal history of nicotine dependence; Z79.899 Other long term (current) drug therapy
CPT/HCPCS: 36415; 71020; 80048; 80053; 82271; 85014; 85018; 85025; 85610; 85730; 94640; 94760; 96374; 96375; 96376; 99285; A9270-GY; G0378; J0780; J2405

== ENCOUNTER 2017-07-05 15:02 | Inpatient (IN) | payer BC ==
[2017-07-05] MEDS ORDERED: NS 0.9% 1000 ML* 1,000 ML IV ONE (15:36)
[2017-07-05] MEDS ORDERED: Ondansetron INJ* 2 MG/ML VIAL ONE (16:17)
[2017-07-05] MEDS ORDERED: Ondansetron INJ* 2 MG/ML VIAL IV ONE (16:20)
[2017-07-05 16:25] LABS: Hematocrit 19 % (42-52); Mean Platelet Volume 8 um3 (7.4-10.4)
[2017-07-05 16:30] LABS: Mean Corpuscular HGB Conc 33 g/dl (31-36); Mean Corpuscular Hemoglobin 28 pg (27-31); Mean Corpuscular Volume 85 fL (80-94); Red Blood Count 2.27 10^6/ul (4.0-5.4); Red Cell Distribution Width 16 % (10.5-15); White Blood Count 24.9 10^3/ul (3.5-10.8)
[2017-07-05 16:34] LABS: Albumin 2.8 g/dL (3.2-5.2); Calcium 8.3 mg/dL (8.6-10.3); EGFR African American 220.4 (>60); EGFR Non-African American 171.4 (>60); Globulin 3.2 g/dL (2-4); Potassium 4.1 mmol/L (3.5-5.0); Total Bilirubin 0.4 mg/dL (0.2-1.0)
[2017-07-05 16:35] LABS: Comments Flag Yes
[2017-07-05 16:37] LABS: Add Diff/Slide Review? Slide Review Added; Hemoglobin 6.4 g/dl (14.0-18.0)
[2017-07-05] MEDS ORDERED: Levalbuterol HFA INHALER* 1 PUFF MDI INH PRN (17:25)
[2017-07-05] MEDS ORDERED: Pantoprazole IV* 40 MG IV ONE (17:39)
[2017-07-05] MEDS: Pantoprazole IV* 80 MG in NS 0.9% 250 ML* 250 ML IV SCH (18:55)
[2017-07-05] MEDS: Mometasone/Formoter 200/5 MDI INH SCH (19:56)
[2017-07-05] MEDS: NS 0.9% 1000 ML* 1,000 ML IV SCH (23:00)
[2017-07-05 23:50] LABS: Hematocrit 21 % (42-52); Hemoglobin 7.2 g/dl (14.0-18.0)
[2017-07-06] MEDS: Pantoprazole IV* 80 MG in NS 0.9% 250 ML* 250 ML IV SCH ×2 (05:01→15:51)
[2017-07-06 05:06] LABS: Hematocrit 29 % (42-52); Hemoglobin 9.8 g/dl (14.0-18.0); Mean Corpuscular HGB Conc 33 g/dl (31-36); Mean Corpuscular Hemoglobin 29 pg (27-31); Mean Corpuscular Volume 88 fL (80-94); Mean Platelet Volume 8 um3 (7.4-10.4); Red Blood Count 3.34 10^6/ul (4.0-5.4); Red Cell Distribution Width 15 % (10.5-15); White Blood Count 20.7 10^3/ul (3.5-10.8)
[2017-07-06] MEDS: Mometasone/Formoter 200/5 MDI INH SCH ×2 (07:20→21:27)
[2017-07-06 07:46] LABS: Albumin 2.5 g/dL (3.2-5.2); BUN/Creatinine Ratio 26.3 (8-20); EGFR African American 189.5 (>60); EGFR Non-African American 147.3 (>60); Globulin 2.7 g/dL (2-4); Potassium 4.3 mmol/L (3.5-5.0); Total Bilirubin 2.3 mg/dL (0.2-1.0); Total Protein 5.2 g/dL (6.4-8.9)
--- NOTE | 2017-07-06 09:02 | CONSULT ---
Consult Consult: Consultation Note Critical Care Requesting Physician: Dr Karin Flores Reason for consult: GI hemorrhage Limitations in history/physical: none Date of consult: 07/06/2017 HPI: 56y M pmhx Locally advanced esophageal CA (diag early 2016), recurrent nausea/vom with associated weight loss, s/p Jtube, asthma, h/o left lobectomy 1959. Has been offered chemotherapy for esophageal Ca but has refused in the past, refused port placement. Recent admissions noted for possible hematemesis, started on prevacid, discharged and had stable hemoglobins prior. He comes in now for 2-3 days of black stools, denies red/maroon stools, no hematemesis. No abd pain. Nausea+ and persistent. No vomiting. Some spitting up of blood at times still as prior. No diarrheal. No swelling. No sob/cp. Fatigue+, weakness+ , dizziness+. No syncope/headache. Denies use of nsaids. No alcohol use. Weight loss+. ED/floor Course: found to be tachycardic, not hypotensive. Started on IVF and PRBC. ROS: negative except for pertinent positives mentioned above. PMHx: esophageal Ca, asthma, chronic weight loss/nausea. PSHx: Jtube placement 04/2017, left lobectomy 1959 Family History: DM Social History: former alcohol use. No smoking history. No drug use history. Allergies: Allergies Allergy/AdvReac Type Severity Reaction Status Date / Time No Known Allergies Allergy Verified 07/05/17 15:08 Home Medications: Fluticas/Salmet 115/21 HFA(NF) [Advair HFA 115/21 (NF)] 1 puff INH BID 07/25/14 [History Confirmed 07/05/17] Levalbuterol HFA INHALER* [Xopenex Hfa Inhaler*] 2 puff INH QID PRN 03/18/17 [ History Confirmed 07/05/17] Acetaminophen TAB* [Tylenol TAB*] 650 mg PO Q4H PRN #0 tab 06/14/17 [Rx Confirmed 07/05/17] Tele: NSR Vitals: Vital Signs Temp 98.6 F 07/06/17 08:55 Pulse 91 07/06/17 08:01 Resp 23 07/06/17 08:01 BP 110/67 07/06/17 08:00 Pulse Ox 95 07/06/17 08:01 Intake & Output 07/05/17 07/06/17 07/06/17 18:59 06:59 18:59 Intake Total 1000 2318 Output Total 475 350 Balance 1000 1843 -350 Weight 175 lb 175 lb Intake: IV Fluids 1000 1379 Blood 1379 IVPB 90 Blood 90 Medicated IV 248 Protonix 248 Packed Cells 601 Output: Urine 475 350 Other: Estimated Void Small Date of Last Bowel 07/05/17 Movement # Voids 1 O2/Vent: RA Infusions: Protonix 8mg/hour; NS 75cc/hour Current Medications: Pantoprazole Sodium 80 mg/ (Sodium Chloride) 250 mls @ 25 mls/hr IV Q10H [facility] Last Admin: 07/06/17 05:01 Dose: 25 mls/hr Sodium Chloride (Ns 0.9% 1000 Ml*) 1,000 mls @ 75 mls/hr IV PER RATE [facility] Last Admin: 07/05/17 23:00 Dose: 75 mls/hr Levalbuterol HCl (Xopenex Hfa Inhaler*) 2 puff INH QID PRN PRN Reason: SOB/WHEEZING Mometasone Furoate/Formoterol Fumar (Dulera 200/5 Mdi*) 1 puff INH BID [facility] PRN Reason: Protocol Last Admin: 07/06/17 07:20 Dose: 1 puff Physical Exam: General: awake, alert, no distress, no diaphoresis Head: normocephalic, atraumatic HEENT: + pallor, no icterus, moist mucous membranes Neck: soft, supple, no jvd, no stridor CVS: normal rate, normal rhythm, no murmur Resp: bilateral air entry, no rhales, no wheeze, no rhonchi, no acc muscle use Abdomen: soft, nontender, nondistended, bowel sounds present; Jtube+ Ext: pulses+, warm, no edema Skin: intact, no breakdown, no dryness Neuro: awake, alert, orientedx3, moving all extremities, no gross focal deficit Labs: Laboratory Results - last 24 hr 07/05/17 07/05/17 07/05/17 16:00 16:00 16:00 WBC 24.9 H RBC 2.27 L Hgb 6.4 L* Hct 19 L MCV 85 MCH 28 MCHC 33 RDW 16 H Plt Count 451 H D MPV 8 Neut % (Auto) 87.2 H Lymph % (Auto) 5.5 L [place] % (Auto) 6.4 Eos % (Auto) 0.4 Baso % (Auto) 0.5 Absolute Neuts (auto) 21.7 H Absolute Lymphs (auto) 1.4 Absolute Monos (auto) 1.6 H Absolute Eos (auto) 0.1 Absolute Basos (auto) 0.1 Absolute Nucleated RBC 0.02 Nucleated RBC % 0.1 INR (Anticoag Therapy) 1.06 APTT Sodium 130 L Potassium 4.1 Chloride 95 L Carbon Dioxide 28 Anion Gap 7 BUN 21 Creatinine 0.50 L Est GFR ( Amer) 220.4 Est GFR (Non-Af Amer) 171.4 BUN/Creatinine Ratio 42.0 H Glucose 171 H Calcium 8.3 L Total Bilirubin 0.40 AST 13 ALT 14 Alkaline Phosphatase 51 Total Protein 6.0 L Albumin 2.8 L Globulin 3.2 Albumin/Globulin Ratio 0.9 L Blood Type Antibody Screen Crossmatch 07/05/17 07/05/17 07/06/17 16:00 23:45 04:45 WBC RBC Hgb 7.2 L Hct 21 L MCV MCH MCHC RDW Plt Count MPV Neut % (Auto) Lymph % (Auto) [place] % (Auto) Eos % (Auto) Baso % (Auto) Absolute Neuts (auto) Absolute Lymphs (auto) Absolute Monos (auto) Absolute Eos (auto) Absolute Basos (auto) Absolute Nucleated RBC Nucleated RBC % INR (Anticoag Therapy) 1.06 APTT 28.0 Sodium Potassium Chloride Carbon Dioxide Anion Gap BUN Creatinine Est GFR ( Amer) Est GFR (Non-Af Amer) BUN/Creatinine Ratio Glucose Calcium Total Bilirubin AST ALT Alkaline Phosphatase Total Protein Albumin Globulin Albumin/Globulin Ratio Blood Type A Positive Antibody Screen Negative Crossmatch See Detail 07/06/17 07/06/17 04:45 04:45 WBC 20.7 H RBC 3.34 L Hgb 9.8 L Hct 29 L MCV 88 MCH 29 MCHC 33 RDW 15 Plt Count 321 MPV 8 Neut % (Auto) 86.2 H Lymph % (Auto) 5.8 L [place] % (Auto) 7.2 Eos % (Auto) 0.3 Baso % (Auto) 0.5 Absolute Neuts (auto) 17.9 H Absolute Lymphs (auto) 1.2 Absolute Monos (auto) 1.5 H Absolute Eos (auto) 0.1 Absolute Basos (auto) 0.1 Absolute Nucleated RBC 0.03 Nucleated RBC % 0.1 INR (Anticoag Therapy) APTT Sodium 134 Potassium 4.3 Chloride 101 Carbon Dioxide 27 Anion Gap 6 BUN 15 Creatinine 0.57 L Est GFR ( Amer) 189.5 Est GFR (Non-Af Amer) 147.3 BUN/Creatinine Ratio 26.3 H Glucose 138 H Calcium 8.0 L Total Bilirubin 2.30 H D AST 12 L ALT 12 Alkaline Phosphatase 49 Total Protein 5.2 L Albumin 2.5 L Globulin 2.7 Albumin/Globulin Ratio 0.9 L Blood Type Antibody Screen Crossmatch Imaging: - Assessment: 56y M pmhx Locally advanced esophageal CA (diag early 2016), recurrent nausea/vom with associated weight loss, s/p Jtube, asthma, h/o left lobectomy 1959. Presents with 2-3 days of weakness, fatigue, dark black stools, dizziness+. -Upper GI hemorrhage -Acute blood loss anemia -Esophageal CA Plan: Neuro- stable CVS- tachycardia improved. BP stable 100-110 systolics. Cont NS infusion 75cc/ hour. s/p 4 prbc, hg 6.4->7.2->9.8. Follow h/h q6h. Resp- on RA. No distress. Cont inhaled steroid, xopenex hfa ID- afebrile. Wbc noted 24 on admission, down to 20 now. Likely reactive. No source/symptoms of infection. Monitor for now. GI- suspect Upper GI source of bleed. Cont PPI infusion. NPO. H/H q6h. GI consult pending, will push for EGD today. No coagulopathy noted. Renal- Cr normal. No lujan. On NS infusion 75cc/hour. Hyponatremia/ hypochloremia likely from volume depletion/salt loss, improved now. Heme- h/h improved post 4 units prbc. Cont to monitor, q6h h/h for now. Endo- glycemic control, target BS <200 Musculsk- none Wounds- none, wound care around Jtube site. Nutrition- NPO DVT prophylaxis: none GI prophylaxis: PPI infusion Central Line: none Arterial Line: none Lujan Cathetor: none Disposition: ICU for GI hemorrhage, acute blood loss anemia Code Status: Full Code Yoandy Keith MD Rat Culturist (Electronically Signed)
[2017-07-06] MEDS: NS 0.9% 1000 ML* 1,000 ML IV SCH ×2 (10:09→22:02)
[2017-07-06 12:43] LABS: Hematocrit 29 % (42-52); Hemoglobin 9.8 g/dl (14.0-18.0)
[2017-07-06] MEDS ORDERED: Meperidine SYRINGE* 50 MG/ML ONE (14:15)
[2017-07-06] MEDS ORDERED: Midazolam* 1 MG/ML 10 ML VIAL (10 MG) ONE (14:15)
[2017-07-06 18:29] LABS: Hematocrit 24 % (42-52); Mean Corpuscular HGB Conc 33 g/dl (31-36); Mean Corpuscular Hemoglobin 29 pg (27-31); Mean Corpuscular Volume 89 fL (80-94); Mean Platelet Volume 8 um3 (7.4-10.4); Red Blood Count 2.76 10^6/ul (4.0-5.4); Red Cell Distribution Width 16 % (10.5-15); White Blood Count 18.7 10^3/ul (3.5-10.8)
--- NOTE | 2017-07-06 20:21 | CONS ---
GASTROENTEROLOGY CONSULT: DATE: 07/06/17 CONSULTING PHYSICIAN: Karin Flores REASON FOR CONSULTATION: Black stools, fatigue and hemoglobin falling to 6.4 from most recent 1 week ago of 10.6. HISTORY: This 56-year-old man diagnosed with esophageal cancer, 03/19/17, has spent 3-1/2 months getting other opinions and trying to decide what to do. His tumor has progressed based on most recent CT scan, 06/23/17. The oncologist has been imploring him to make a decision about treatment, but he is quite ambivalent. He has a fixation on getting stronger before accepting treatments. He was admitted here 3 weeks ago with some bleeding. It seemed to stop and he did not require a change in treatment or transfusions and thus, endoscopy was not requested. He was under the impression that Prevacid given to him for his J -tube was for nausea and since nausea continued, he stooped this. PAST MEDICAL HISTORY: 1. Diabetes type 2 - remitted with weight loss. 2. GERD. MEDICATIONS: J-tube feedings Vital, Advair Diskus. FAMILY HISTORY: His father had diverticulitis resulting in surgery and his father also has had a kidney cancer status post nephrectomy. SOCIAL HISTORY: He is . He is on disability currently. REVIEW OF SYSTEMS: No history of syncope, valvular disease, [place], arrhythmia, TB , hemoptysis, hepatitis, renal stones, hematuria. He had a colonoscopy, July 2014 with no findings. EXAM: He is a slender, somewhat frail and gaunt appearing middle-aged man with halitosis. HEENT exam is unremarkable. There is no icterus. He has no palpable adenopathy. Breath sounds are diminished. He has no wheezing. Heart sounds are regular. The abdomen is flat with a jejunostomy tube just above the left of the umbilicus. Bowel sounds are present. The abdomen is firm. Rectal is deferred. Extremities show no edema, but reduced muscle mass. Neurologic: Nonfocal. IMAGING DATA: CT scan - reviewed with Dr. Savage and the mediastinal nodes have progressed. It is a large bulky tumor. IMPRESSION: Clinical upper GI bleed in a man with an untreated esophageal cancer. Lack of treatment is due to his own ambivalence. His BUN on admission was 21, not terribly elevated, so the bleeding is probably somewhat subacute. There are other signs of deteriorating nutrition including albumin 2.5, prealbumin 10 a couple of months ago. There is the question as to whether there is a new process going on contributing to the bleeding. It seems remote, but upper endoscopy has been requested to investigate that possibility. After islam of his blood volume with the 4 units that can be done as he has tolerated conscious sedation in the past. Still nonetheless, a new process is unlikely. Before the procedure, the patient was encouraged quite directly to accept some form of treatment. [id number]/[facility] #: [id number] [facility]ITALRich
--- NOTE | 2017-07-06 21:17 | ED ---
Sveta Capone Edward, scribed for Omid Blanton MD on 07/05/17 at 1527 . GI/ HPI - HPI Summary HPI Summary: 56 y/o male presents to ED c/o sudden onset, intermittent melena described as black, tarry stool starting two days ago. The symptoms are not aggravated or alleviated by anything. Associated sx: fatigue, chronic nausea (months). Denies ABD pain. SHx J-tube. PMHx esophageal cancer. - History of Current Complaint Chief Complaint: EDGIBleed Time Seen by Provider: 07/05/17 15:25 Stated Complaint: BLACK STOOL Hx Obtained From: Patient Onset/Duration: Started Days Ago Timing: Intermittent Pain Intensity: 0 Associated Signs and Symptoms: Positive: Nausea, Black Tarry Stool, Other: - Fatigue - Additional Pertinent History Primary Care Physician: [id number] - Allergy/Home Medications Allergies/Adverse Reactions: Allergies Allergy/AdvReac Type Severity Reaction Status Date / Time No Known Allergies Allergy Verified 07/05/17 15:08 PMH/Surg Hx/FS Hx/Imm Hx Previously Healthy: No Endocrine/Hematology History: Reports: Hx Diabetes - Type 2 diabetes Denies: Hx Thyroid Disease Cardiovascular History: Denies: Hx Hypertension Respiratory History: Reports: Hx Asthma, Other Respiratory Problems/Disorders - 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 Denies: Hx Chronic Obstructive Pulmonary Disease (COPD) GI History: Reports: Other GI Disorders - Esophageal Cancer Denies: Hx Ulcer Sensory History: Reports: Hx Contacts or Glasses Denies: Hx Hearing Aid Opthamlomology History: Reports: Hx Contacts or Glasses - Cancer History Cancer Type, Location and Year: Esoph Ca Hx Chemotherapy: No Hx Radiation Therapy: No Hx Palliative Cancer Treatment: No - Surgical History Surgery Procedure, Year, and Place: Left lung lobectomy Infectious Disease History: Denies: Hx Clostridium Difficile, Hx Hepatitis, Hx Human Immunodeficiency Virus (HIV), Hx of Known/Suspected MRSA, Hx Shingles, Hx Tuberculosis, Hx Known/ Suspected VRE, Hx Known/Suspected VRSA, History Other Infectious Disease, Traveled Outside the [place] in Last 30 Days - Family History Known Family History: Positive: Diabetes - Social History Alcohol Use: Rare Alcohol Amount: 1-2 times a year Hx Substance Use: No Substance Use Type: Reports: None Hx Tobacco Use: No Smoking Status (MU): Former Smoker Review of Systems Positive: Fatigue Eyes: Negative ENT: Negative Cardiovascular: Negative Respiratory: Negative Positive: Nausea, Other - Melena Genitourinary: Negative Musculoskeletal: Negative Skin: Negative Neurological: Negative Psychological: Normal All Other Systems Reviewed And Are Negative: Yes Physical Exam Triage Information Reviewed: Yes Vital Signs On Initial Exam: Initial Vitals Temp Pulse Resp BP Pulse Ox 98.3 F 119 20 109/60 97 07/05/17 15:08 07/05/17 15:08 07/05/17 15:08 07/05/17 15:08 07/05/17 15:08 Vital Signs Reviewed: Yes Appearance: Positive: Well-Appearing, No Pain Distress Skin: Positive: Warm, Skin Color Reflects Adequate Perfusion, Dry Head/Face: Positive: Normal Head/Face Inspection Eyes: Positive: Normal ENT: Positive: Normal ENT inspection Neck: Positive: Supple, Nontender Respiratory/Lung Sounds: Positive: Clear to Auscultation, Breath Sounds Present Cardiovascular: Positive: RRR Abdomen Description: Positive: Nontender, Soft Bowel Sounds: Positive: Present Musculoskeletal: Positive: Normal Neurological: Positive: Normal Psychiatric: Positive: Normal, Affect/Mood Appropriate Diagnostics - Vital Signs Vital Signs Temp Pulse Resp BP Pulse Ox 07/05/17 15:08 98.3 F 119 20 109/60 97 - Laboratory Lab Results: Lab Results 07/05/17 07/05/17 07/05/17 Range/Units 16:00 16:00 16:00 WBC 24.9 H (3.5-10.8) 10^3/ul RBC 2.27 L (4.0-5.4) 10^6/ul Hgb 6.4 L* (14.0-18.0) g/dl Hct 19 L (42-52) % MCV 85 (80-94) fL MCH 28 (27-31) pg MCHC 33 (31-36) g/dl RDW 16 H (10.5-15) % Plt Count 451 H D (150-450) 10^3/ul MPV 8 (7.4-10.4) um3 Neut % (Auto) 87.2 H (38-83) % Lymph % (Auto) 5.5 L (25-47) % Haywood % (Auto) 6.4 (1-9) % Eos % (Auto) 0.4 (0-6) % Baso % (Auto) 0.5 (0-2) % Absolute Neuts (auto) 21.7 H (1.5-7.7) 10^3/ul Absolute Lymphs (auto) 1.4 (1.0-4.8) 10^3/ul Absolute Monos (auto) 1.6 H (0-0.8) 10^3/ul Absolute Eos (auto) 0.1 (0-0.6) 10^3/ul Absolute Basos (auto) 0.1 (0-0.2) 10^3/ul Absolute Nucleated RBC 0.02 10^3/ul Nucleated RBC % 0.1 INR (Anticoag Therapy) 1.06 (0.89-1.11) Sodium 130 L (133-145) mmol/L Potassium 4.1 (3.5-5.0) mmol/L Chloride 95 L (101-111) mmol/L Carbon Dioxide 28 (22-32) mmol/L Anion Gap 7 (2-11) mmol/L BUN 21 (6-24) mg/dL Creatinine 0.50 L (0.67-1.17) mg/dL Est GFR ( Amer) 220.4 (>60) Est GFR (Non-Af Amer) 171.4 (>60) BUN/Creatinine Ratio 42.0 H (8-20) Glucose 171 H (70-100) mg/dL Calcium 8.3 L (8.6-10.3) mg/dL Total Bilirubin 0.40 (0.2-1.0) mg/dL AST 13 (13-39) U/L ALT 14 (7-52) U/L Alkaline Phosphatase 51 (34-104) U/L Total Protein 6.0 L (6.4-8.9) g/dL Albumin 2.8 L (3.2-5.2) g/dL Globulin 3.2 (2-4) g/dL Albumin/Globulin Ratio 0.9 L (1-3) Blood Type Antibody Screen Crossmatch 07/05/17 Range/Units 16:00 WBC (3.5-10.8) 10^3/ul RBC (4.0-5.4) 10^6/ul Hgb (14.0-18.0) g/dl Hct (42-52) % MCV (80-94) fL MCH (27-31) pg MCHC (31-36) g/dl RDW (10.5-15) % Plt Count (150-450) 10^3/ul MPV (7.4-10.4) um3 Neut % (Auto) (38-83) % Lymph % (Auto) (25-47) % Haywood % (Auto) (1-9) % Eos % (Auto) (0-6) % Baso % (Auto) (0-2) % Absolute Neuts (auto) (1.5-7.7) 10^3/ul Absolute Lymphs (auto) (1.0-4.8) 10^3/ul Absolute Monos (auto) (0-0.8) 10^3/ul Absolute Eos (auto) (0-0.6) 10^3/ul Absolute Basos (auto) (0-0.2) 10^3/ul Absolute Nucleated RBC 10^3/ul Nucleated RBC % INR (Anticoag Therapy) (0.89-1.11) Sodium (133-145) mmol/L Potassium (3.5-5.0) mmol/L Chloride (101-111) mmol/L Carbon Dioxide (22-32) mmol/L Anion Gap (2-11) mmol/L BUN (6-24) mg/dL Creatinine (0.67-1.17) mg/dL Est GFR ( Amer) (>60) Est GFR (Non-Af Amer) (>60) BUN/Creatinine Ratio (8-20) Glucose (70-100) mg/dL Calcium (8.6-10.3) mg/dL Total Bilirubin (0.2-1.0) mg/dL AST (13-39) U/L ALT (7-52) U/L Alkaline Phosphatase (34-104) U/L Total Protein (6.4-8.9) g/dL Albumin (3.2-5.2) g/dL Globulin (2-4) g/dL Albumin/Globulin Ratio (1-3) Blood Type A Positive Antibody Screen Negative Crossmatch See Detail Result Diagrams: 07/06/17 18:15 07/06/17 04:45 Lab Statement: Any lab studies that have been ordered have been reviewed, and results considered in the medical decision making process. GIGU Course/Dx - Course Course Of Treatment: Mr. Childress presented C/O about a day of black tarry stools. He was tachycardic on arrival which responded to IV NS. He was admitted to the ICU for stabilization and further W/U. - Diagnoses Provider Diagnoses: Upper GI hemorrhage - Physician Notifications Discussed Care Of Patient With: Karin Flores Time Discussed With Above Provider: 16:40 Instructed by Provider To: Admit As Inpatient - Critical Care Time Critical Care Time: 30-74 min Discharge - Discharge Plan Condition: Stable Disposition: ADMITTED TO [facility] documentation as recorded by the Sveta hutchins Edward accurately reflects the service I personally performed and the decisions made by me, Omid Blanton MD.
[2017-07-06 22:05] LABS: Hematocrit 28 % (42-52); Hemoglobin 9.2 g/dl (14.0-18.0)
[2017-07-07] MEDS: Pantoprazole IV* 80 MG in NS 0.9% 250 ML* 250 ML IV SCH (01:14)
--- NOTE | 2017-07-07 01:35 | PRO ---
DATE: 07/06/17 - ROOM #ICU-06 REFERRING PHYSICIANS: Ezekiel Savage MD; Regulo Sellers MD * PROCEDURE: Upper gastrointestinal endoscopy through the distal duodenum. INDICATION: A 56-year-old man known to have distal esophageal cancer, developed black stool and felt weak. He was admitted with a hemoglobin in the upper 5's. He has received 4 units of transfusion and is feeling better. He has been restarted on a PPI now via intravenous drip. He had been receiving it through his J-tube, but thought it was not helping nausea, so discontinued it. He is not having any chest pain per se. What he has been spitting up has been clearish. After conversation with Dr. Savage, more information regarding his tumor was desired and reassurance that there was not a new process causing his bleeding. The likelihood that endoscopy would not have any therapeutic benefit for tumor- related bleeding was mentioned. ENDOSCOPIST: Umberto Sinclair MD MEDICATIONS: Midazolam 12, meperidine 125. FINDINGS: He is a gaunt, pale man, appearing in no acute distress. He can review the conversation he had with Dr. Savage earlier today where he is aware he needs to choose a therapy. EGD: Larynx - symmetric, limited views without blood. Esophagus - easily entered and there is no blood present. There is regurgitation of purulent mucoid light argueta material. A fungating mass is encountered at about 27.5 to 28 cm. It is clearly progressed from his prior exam of late February. The tumor does distend with CO2 and a cleft can be found and a pathway found until about 38 cm where it becomes more tortuous and inferior deflection of the tip is required. Eventually, the scope emerges in the gastric fundus. Stomach - splattered coating of coffee-ground material, but no active bleeding and no active clots. There are a few clots high on the fundus. There is no active bleeding. The antrum appears normal. Duodenum - the pylorus, bulb, and second through fourth portions appear normal. During withdrawal, there was some fresh blood present in the lumen. The tumor measured from 43 cm back to about 28. IMPRESSION: Impressively progressed esophageal cancer with friability. There was no active bleeding at the time of the procedure. There is no other pathology or potential source of blood loss identified in the upper GI tract. Report was phoned to Dr. Savage. [id number]/[facility] #: [id number] [facility] CENT[facility]ich
[2017-07-07 06:17] LABS: Hematocrit 27 % (42-52); Mean Corpuscular HGB Conc 33 g/dl (31-36); Mean Corpuscular Hemoglobin 29 pg (27-31); Mean Corpuscular Volume 88 fL (80-94); Mean Platelet Volume 8 um3 (7.4-10.4); Red Cell Distribution Width 16 % (10.5-15); White Blood Count 20.9 10^3/ul (3.5-10.8)
[2017-07-07 06:18] LABS: Add Diff/Slide Review? Slide Review Added; Comments Flag Yes
[2017-07-07 06:29] LABS: Albumin 2.5 g/dL (3.2-5.2); BUN/Creatinine Ratio 30.4 (8-20); Direct Bilirubin 0.3 mg/dL (0.03-0.18); EGFR African American 242.7 (>60); EGFR Non-African American 188.7 (>60); Globulin 2.5 g/dL (2-4); Magnesium 1.9 mg/dL (1.9-2.7); Total Bilirubin 1.3 mg/dL (0.2-1.0)
[2017-07-07] MEDS: Mometasone/Formoter 200/5 MDI INH SCH ×2 (08:51→21:55)
[2017-07-07] MEDS ORDERED: Pantoprazole IV* 40 MG ONE (09:44)
--- NOTE | 2017-07-07 10:15 | PN ---
Progress Note - Progress Note Date of Service: 07/07/17 Note: Progress Note - Critical Care 24 hours events: -s/p EGD yesterday, found to have progression of distal esophageal fungating mass. no sign of active bleeding noted. Stomach showing old blood only, no active sites noted either. -hemodyn stable, remains tachycardic overnight -h/h frequently checked; noted drop to 8.0, then repeats 9.2. -no abd pain; nausea+, no vomitting. no further black stools/melanotic stools overnight -no cp/sob/headache/dizziness. no dysuria. no fever/chills. weakness improved. Tele: sinus tachycardia Vitals: tmax 100.8 Vital Signs Temp 99.3 F 07/07/17 07:40 Pulse 96 07/07/17 09:01 Resp 24 07/07/17 09:01 BP 118/63 07/07/17 09:00 Pulse Ox 96 07/07/17 09:01 Intake & Output 07/06/17 07/07/17 07/07/17 18:59 06:59 18:59 Intake Total 1065 1350 Output Total 950 985 Balance 115 365 Intake: IV Fluids 815 1011 NS 815 1011 Medicated IV 250 339 Protonix 250 339 Oral 0 Output: Urine 850 800 Emesis 100 185 O2/Vent: RA Infusions: Protonix 8mg/hour; NS 75cc/hour Current Medications: Sodium Chloride (Ns 0.9% 1000 Ml*) 1,000 mls @ 75 mls/hr IV PER RATE [facility] Last Admin: 07/06/17 22:02 Dose: 75 mls/hr Pantoprazole Sodium 80 mg/ (Sodium Chloride) 250 mls @ 25 mls/hr IVPB Q10H [facility] Levalbuterol HCl (Xopenex Hfa Inhaler*) 2 puff INH QID PRN PRN Reason: SOB/WHEEZING Mometasone Furoate/Formoterol Fumar (Dulera 200/5 Mdi*) 1 puff INH BID [place] PRN Reason: Protocol Last Admin: 07/07/17 08:51 Dose: 1 puff Physical Exam: General: awake, alert, no distress, no diaphoresis Head: normocephalic, atraumatic HEENT: + pallor, no icterus, moist mucous membranes Neck: soft, supple, no jvd, no stridor CVS: tachycardic at times, normal rhythm, no murmur Resp: bilateral air entry, no rhales, no wheeze, no rhonchi, no acc muscle use Abdomen: soft, nontender, nondistended, bowel sounds present; Jtube+ Ext: pulses+, warm, no edema Skin: intact, no breakdown, no dryness Neuro: awake, alert, orientedx3, moving all extremities, no gross focal deficit Labs: Laboratory Results - last 24 hr 07/06/17 07/06/17 07/06/17 12:08 18:15 21:55 WBC 18.7 H RBC 2.76 L Hgb 9.8 L 8.0 L 9.2 L Hct 29 L 24 L 28 L MCV 89 MCH 29 MCHC 33 RDW 16 H Plt Count 311 MPV 8 Neut % (Auto) 89.9 H Lymph % (Auto) 4.2 L Brantley % (Auto) 5.3 Eos % (Auto) 0.3 Baso % (Auto) 0.3 Absolute Neuts (auto) 16.8 H Absolute Lymphs (auto) 0.8 L Absolute Monos (auto) 1.0 H Absolute Eos (auto) 0.1 Absolute Basos (auto) 0 Absolute Nucleated RBC 0.01 Nucleated RBC % 0 Sodium Potassium Chloride Carbon Dioxide Anion Gap BUN Creatinine Est GFR ( Amer) Est GFR (Non-Af Amer) BUN/Creatinine Ratio Glucose Calcium Magnesium Total Bilirubin Direct Bilirubin Indirect Bilirubin AST ALT Alkaline Phosphatase Total Protein Albumin Globulin Albumin/Globulin Ratio 07/07/17 07/07/17 06:05 06:05 WBC 20.9 H RBC 3.10 L Hgb 9.0 L Hct 27 L MCV 88 MCH 29 MCHC 33 RDW 16 H Plt Count 353 MPV 8 Neut % (Auto) 85.4 H Lymph % (Auto) 5.5 L Brantley % (Auto) 8.3 Eos % (Auto) 0.4 Baso % (Auto) 0.4 Absolute Neuts (auto) 17.8 H Absolute Lymphs (auto) 1.2 Absolute Monos (auto) 1.7 H Absolute Eos (auto) 0.1 Absolute Basos (auto) 0.1 Absolute Nucleated RBC 0 Nucleated RBC % 0 Sodium 126 L D Potassium 4.0 Chloride 97 L Carbon Dioxide 24 Anion Gap 5 BUN 14 Creatinine 0.46 L Est GFR ( Amer) 242.7 Est GFR (Non-Af Amer) 188.7 BUN/Creatinine Ratio 30.4 H Glucose 140 H Calcium 8.0 L Magnesium 1.9 Total Bilirubin 1.30 H Direct Bilirubin 0.30 H Indirect Bilirubin 1.0 AST 13 ALT 14 Alkaline Phosphatase 48 Total Protein 5.0 L Albumin 2.5 L Globulin 2.5 Albumin/Globulin Ratio 1.0 Imaging: - Assessment: 56y M pmhx Locally advanced esophageal CA (diag early 2016), recurrent nausea/vom with associated weight loss, s/p Jtube, asthma, h/o left lobectomy 1959. Presents with 2-3 days of weakness, fatigue, dark black stools, dizziness+. -Upper GI hemorrhage, unspecified source -Acute blood loss anemia -Progressive fungating, Esophageal CA Plan: Neuro- stable CVS- intermittent tachycardia. BP stable 100-110 systolic. Cont NS infusion 75cc /hour. h/h stable 9-10 range, no further transfusions overnight. recheck q8h. Resp- on RA. No distress. Cont inhaled steroid, xopenex hfa ID- afebrile. WBC 20. Likely reactive, cont to monitor off abx. GI- s/p EGD, progression of esophageal mass. no clear source of bleeding identified but nothign active seen. Cont PPI infusion for 24 hours more then transitioin to IV BID. h/h stable, check q8h for 24 hours. If okay with GI, restart feeds low dose? Renal- Cr normal. No lujan. On NS infusion 75cc/hour. Hyponatremia/ hypochloremia likely from volume depletion/salt loss. Heme- h/h stable 9-10 range. cont to monitor. no further transfusion needed yet. plt stable. Endo- glycemic control, target BS <200 Musculsk- none Wounds- none, wound care around Jtube site. Nutrition- NPO DVT prophylaxis: none GI prophylaxis: PPI infusion Central Line: none Arterial Line: none Lujan Cathetor: none Disposition: ICU for GI hemorrhage, acute blood loss anemia; can likely downgrade in 24 hours if no further h/h changes or hemodyn change. Code Status: Full Code Yoandy Keith MD Lithographic Artist (Electronically Signed)
[2017-07-07] MEDS: Pantoprazole IV* 80 MG in NS 0.9% 250 ML* 250 ML IVPB SCH ×2 (10:20→22:15)
[2017-07-07] MEDS: NS 0.9% 1000 ML* 1,000 ML IV SCH (10:39)
[2017-07-07] MEDS: Ondansetron INJ* 2 MG/ML VIAL IV PRN ×2 (13:04→22:15)
[2017-07-07 14:42] LABS: Hematocrit 27 % (42-52); Hemoglobin 8.8 g/dl (14.0-18.0); Mean Corpuscular HGB Conc 33 g/dl (31-36); Mean Corpuscular Hemoglobin 29 pg (27-31); Mean Corpuscular Volume 88 fL (80-94); Mean Platelet Volume 7 um3 (7.4-10.4); Red Blood Count 3.05 10^6/ul (4.0-5.4); Red Cell Distribution Width 16 % (10.5-15); White Blood Count 18.5 10^3/ul (3.5-10.8)
[2017-07-07 14:43] LABS: Comments Flag Yes
[2017-07-08] MEDS: NS 0.9% 1000 ML* 1,000 ML IV SCH (00:22)
[2017-07-08 05:36] LABS: Hematocrit 26 % (42-52); Hemoglobin 8.8 g/dl (14.0-18.0); Mean Corpuscular HGB Conc 33 g/dl (31-36); Mean Corpuscular Hemoglobin 29 pg (27-31); Mean Corpuscular Volume 88 fL (80-94); Mean Platelet Volume 7 um3 (7.4-10.4); Red Cell Distribution Width 17 % (10.5-15); White Blood Count 17.7 10^3/ul (3.5-10.8)
[2017-07-08 05:54] LABS: BUN/Creatinine Ratio 23.5 (8-20); Calcium 7.8 mg/dL (8.6-10.3); EGFR African American 215.4 (>60); EGFR Non-African American 167.5 (>60); Potassium 3.8 mmol/L (3.5-5.0)
[2017-07-08] MEDS: Mometasone/Formoter 200/5 MDI INH SCH (07:51)
[2017-07-08] MEDS ORDERED: Pantoprazole IV* 80 MG in NS 0.9% 250 ML* 250 ML IVPB SCH (09:00)
[2017-07-08] MEDS: Pantoprazole IV* 80 MG in NS 0.9% 250 ML* 250 ML IVPB SCH (09:13)
[2017-07-08 10:42] VITALS: BP 91/58
--- NOTE | 2017-07-08 11:43 | DS ---
- Discharge Summary Admission Date: 07/05/17 Discharge Date: 07/08/17 Discharge Diagnosis: 1. GI Bleed: Secondary to progressive esophageal tumor 2. Esophageal Cancer: plan to start definitive therapy with chemo and radiation next week 3. Severe protein-caloric malnutrition with 9.8% wt. loss: secondary to poor intake both PO (dysphagia and nausea) and poor tolerance of tube feedings (@ 60 % of recommended 60 mL/hr). 4. Nausea and Vomiting: secondary to known tumor, stable 5. Anemia: secondary to bleed, stable 6. DM Type II: monitored for now Discharge Medications: 1. Zofran 4mg/5mL, 4 mg PEG q4hrs PRN nausea/vomiting 2. Prochlorperazine 10 mg PEG q6hrs PRN nausea/vomiting 3. Advair 115/21 1 puff inh BID 4. Albuterol inhaler 2 puff QID PRN 5. Acetaminophen 650 mg PO q4hrs PRN pain/fever Hospital Course: Please see admission note for full H&P however briefly, Mr. Vail is known to our service due to his diagnosis of locally advanced esophageal cancer on . He initially saw Dr. Savage on 03/24/17 with recommendation for full staging and then treatment within short order. The patient had, as of admission, not accepted therapy. He presented to the ER on 07/05/17 with c/o melena and was admitted with upper GI bleed. He was admitted directly to the ICU where he received supportive care including blood transfusion and IV PPI. He had a consultation with Dr. Ingram of GI on 07/06 and had an EGD that day revealing a fungating, friable mass at 27.5 cm, progressed from prior work-up. At that time there was no active bleed. The same day Dr. Savage presented the patient again with his options for therapy including palliative care only, palliative localized radiation, chemo/XRT, and chemo/XRT with possible surgery. On 07/07 the patient agreed to pursuing chemo/XRT and Dr. Cotton of radiation was consulted on 07/07/17 (though had been seen previously for initial consult in early April). The patient had his RT Simulation this AM with goal of starting therapy early next week. The patient is interested in pursuing an implanted port which is reasonable given his very poor nutritional status and has requested Dr. Hughes place that early next week with tx. to start no sooner than 2 days after placement. He will have formal chemotherapy teaching on 07/13 @ 1300 and we will coordinate his schedule at this time. Dr. Cotton is aware of the patients preference for scheduling and will start his RT on 07/15. Attempts to discuss the urgency in initiating therapy were not successful. Plan of care was reviewed with the patient at length, I discussed trial of Reglan but he declined at this time. He denies further questions and concerns. 40 min spent with >50% face to face counseling
--- NOTE | 2017-07-08 11:59 | RAD ---
HISTORY: CT planning for radiation therapy mapping COMPARISONS: June 23, 2017 TECHNIQUE: Limited axial CT images were obtained of the chest and upper abdomen for the purposes of radiation treatment planning. FINDINGS: There are bilateral pleural effusions. Again noted is masslike mucosal thickening of the mid and distal esophagus. A jejunostomy tube is noted. IMPRESSION: LIMITED CT FOR THE PURPOSES OF RADIATION TREATMENT PLANNING
== END 2017-07-08 11:55 | disposition home or self-care (01) | DRG 254 ==
LOC: ED 15:02 → ICU 17:13 → MED 07-07 10:53
PROVIDERS: ADMIT Internal Medicine Hematology & Oncology; ATTEND Internal Medicine Hematology & Oncology
PROC: 30233N1 Transfusion of Nonautologous Red Blood Cells into Peripheral Vein, Percutaneous Approach (ICD-10-PCS; 2017-07-05)
PROC: 0DJ08ZZ Inspection of Upper Intestinal Tract, Via Natural or Artificial Opening Endoscopic (ICD-10-PCS; principal; 2017-07-06)
DX: K92.1 Melena (principal); E43 Unspecified severe protein-calorie malnutrition; E87.8 Other disorders of electrolyte and fluid balance, not elsewhere classified; C15.9 Malignant neoplasm of esophagus, unspecified; D62 Acute posthemorrhagic anemia; E87.1 Hypo-osmolality and hyponatremia; R13.10 Dysphagia, unspecified; E11.9 Type 2 diabetes mellitus without complications; J45.909 Unspecified asthma, uncomplicated; Z87.891 Personal history of nicotine dependence; Z72.89 Other problems related to lifestyle; K21.9 Gastro-esophageal reflux disease without esophagitis; Z80.51 Family history of malignant neoplasm of kidney; Z80.0 Family history of malignant neoplasm of digestive organs; Z68.21 Body mass index [BMI] 21.0-21.9, adult; Z93.4 Other artificial openings of gastrointestinal tract status; R11.0 Nausea; R00.0 Tachycardia, unspecified
CPT/HCPCS: 36415; 77014; 80048; 80053; 80076; 83735; 85014; 85018; 85025; 85027; 85610; 85730; 86850; 86900; 86901; 86922; 87641; 94640; 94760; 99156; 99223; 99233; A9270-GY; J2250; J2310; J2405; P9040

== ENCOUNTER 2017-07-16 08:56 | Day surgery (SDC) | payer BC ==
[~2017-07-16 08:56] MED LIST: Buffered Lidocaine 0.9% SYRIN* 5 ML/SYR SYRINGE INTRADERM ONE; Dexamethasone IV* 4 MG/ML 1 ML (4 MG) IV SLOW PU ONE; Famotidine IV* 10 MG/ML 2 ML (20 mg) IV ONE
[2017-07-16] MEDS ORDERED: Famotidine IV* 10 MG/ML 2 ML (20 mg) ONE (08:58)
[2017-07-16] MEDS ORDERED: Buffered Lidocaine 0.9% SYRIN* 5 ML/SYR SYRINGE ONE (08:58)
[2017-07-16] MEDS ORDERED: Dexamethasone IV* 4 MG/ML 1 ML (4 MG) ONE (08:58)
[2017-07-16] MEDS ORDERED: Lidocaine 1% INJ* 10 MG/ML 30 ML SDV ONE (09:19)
[2017-07-16] MEDS ORDERED: fentaNYL* 50 MCG/ML 2 ML VIAL (100 MCG VIAL) ONE (11:00)
[2017-07-16] MEDS ORDERED: Midazolam* 1 MG/ML 5 ML VIAL (5 MG) ONE (11:00)
[2017-07-16] MEDS ORDERED: fentaNYL* 50 MCG/ML 2 ML VIAL (100 MCG VIAL) IV PRN (11:03)
[2017-07-16] MEDS ORDERED: PROCHLORPERAZINE INJ 5 MG/ML 2 ML VIAL IV PRN (11:03)
[2017-07-16] MEDS ORDERED: Lidocaine 2% PF * 5 ML VIAL ONE (11:09)
[2017-07-16] MEDS ORDERED: Propofol* 10 MG/ML 20 ML BTL IV PUSH ONE (11:09)
[2017-07-16] MEDS ORDERED: Ondansetron INJ* 2 MG/ML VIAL ONE (11:49)
--- NOTE | 2017-07-16 12:05 | SURGPN ---
Brief Operative Note - Surgery Procedures: Procedures BYPASS JEJUNUM TO CUTANEOUS, OPEN APPROACH (05/19/17) COLONOSCOPY (07/27/14) INSPECTION OF UPPER INTESTINAL TRACT, ENDO (07/05/17) TRANSFUSE NONAUT RED BLOOD CELLS IN PERIPH VEIN, PERC (07/05/17) 07/16/17 Op Note Pre-op dx: esophageal cancer Post-op dx: same Procedure: power port placement Surgeon: Saul Asst: none Anesth: local-MAC EBL: 3 cc complications: none SCDs on during surgery Abx: none indicated Pt. tolerated procedure well and was transferred to in a stable condtion. CLFoster
[2017-07-16] MEDS ORDERED: Acetaminophen TAB* 325 MG PO PRN (12:06)
[2017-07-16 13:07] LABS: Comments Flag Yes; Hematocrit 19 % (42-52); Mean Corpuscular HGB Conc 33 g/dl (31-36); Mean Corpuscular Hemoglobin 28 pg (27-31); Mean Corpuscular Volume 87 fL (80-94); Mean Platelet Volume 7 um3 (7.4-10.4); Red Blood Count 2.16 10^6/ul (4.0-5.4); Red Cell Distribution Width 16 % (10.5-15); White Blood Count 20.6 10^3/ul (3.5-10.8)
[2017-07-16 13:11] LABS: Hemoglobin 6.1 g/dl (14.0-18.0)
--- NOTE | 2017-07-16 13:17 | RAD ---
INDICATION: Line placement. Evaluate for pneumothorax. COMPARISON: Chest x-ray June 13, 2017; CTA April 2017 TECHNIQUE: An AP portable view obtained at 1215 hours is submitted. FINDINGS: Bones/Soft Tissues: There are no acute bony findings. There is a left-sided Nloeqk-v-Wque catheter. There is angular deformity of the tip of the catheter which may be secondary to the tip the catheter being within the azygos or this catheter could be up against the sidewall. The lumen of the SVC may also be compromised. Cardiomediastinal: The cardiomediastinal silhouette is normal. Lungs: There are no infiltrates. There is no pneumothorax. Pleura: There are no pleural effusions. Other: None IMPRESSION: ANGULATION OF THE DISTAL ASPECT OF THE POWERPORT CATHETER. CATHETER REPOSITIONING AND/OR INJECTION OF THE CATHETER MAY BE REQUIRED TO DETERMINE THE EXACT POSITION OF THE CATHETER TIP AND FURTHER ASSESS FOR COMPROMISE OF THE LUMEN OF THE SVC. Findings discussed with referring surgeon.
[2017-07-16 13:53] VITALS: BP 122/76
--- NOTE | 2017-07-16 18:53 | RAD ---
INDICATION: Power port placement COMPARISONS: Chest x-ray dated July 16, 2017 TECHNIQUE: Fluoroscopy was provided for a vascular access procedure. Total fluoroscopy time is: 125.9 seconds FINDINGS: A left-sided chest port is noted. The tip overlies the expected location of the superior vena cava, but is included and may lie in the azygos vein. IMPRESSION: FLUOROSCOPY WAS PROVIDED FOR A VASCULAR ACCESS PROCEDURE CPT II Codes: 6045F
--- NOTE | 2017-07-17 05:45 | OP ---
CC: [facility] OPERATIVE SUMMARY: DATE OF OPERATION: 07/16/17 DATE OF : 58 SURGEON: Una Hughes MD SYSTEMS LEAD: There was no ortho assistant for this case. PRE-OP DIAGNOSIS: Esophageal cancer. POST-OP DIAGNOSIS: Esophageal cancer. OPERATIVE PROCEDURE: PowerPort placement. DESCRIPTION OF PROCEDURE: This patient is a 56-year-old male with diagnosis of esophageal cancer, w ho requires chemotherapy. Plans were therefore made for PowerPort placement. He was brought to the operating room, placed on the OR table in a supine position and given IV sedat ion. The chest was prepped and draped in the usual sterile fashion. After infiltrating with local anesthetic, using a Seldinger technique, a wire was placed into the left subclavian vein. The posit ion was checked with fluoroscopy. Then, port pocket was created by infiltrating the skin of the hussein st wall with local anesthetic, making an incision and creating a pocket inferiorly using electrocaut tonya. Once the pocket was of an adequate size to accommodate the port, the catheter was tunneled fro m the wire exit site to the port pocket site and then, a dilator and introducer were placed over the wire. The wire and dilator were removed. The catheter was advanced through the introducer under f luoroscopic visualization. It first seemed to abut something in the subclavian vein and directed up towards the neck on the right side. Some manipulation of the introducer allowed it to advance, it still seemed to bump into something and coil, so its position was manipulated by backing it up and a dvancing it until it at least seemed to be into the superior vena cava, although its course is somew hat deviated from apparent external obstruction. The introducer was peeled away. The catheter was trimmed to an appropriate length and attached to the port. The port was placed in the pocket and se cured to the chest wall using 2-0 Surgipro stitches and then closure was accomplished, this was done with 3-0 Polysorb on the subcutaneous tissue. The skin was closed with 4-0 Surgipro in a subcuticu lar fashion. The port function was checked at different stages during the procedure and finally flu shed with heparinized saline. Steri-Strips and the dry sterile dressing were applied. All sponge an d instrument counts were correct. The patient tolerated the procedure well and was transferred to [facility] in a stable condition. [id number]/[facility] #: [id number]
== END 2017-07-16 14:00 ==
LOC: OR 08:56
PROVIDERS: ATTEND Surgery
DX: C15.9 Malignant neoplasm of esophagus, unspecified (principal); E11.9 Type 2 diabetes mellitus without complications; D64.9 Anemia, unspecified; Z90.2 Acquired absence of lung [part of]
CPT/HCPCS: 36415; 71010; 76000; 85025; 86850; 86900; 86901; 86922; C1788; J1100; J1642; J2001; J2250; J2405; J2704; J3010; P9040

== ENCOUNTER 2017-07-19 15:43 | Observation (INO) | payer BC ==
[2017-07-19] MEDS ORDERED: Acetaminophen TAB* 325 MG PO PRN (16:45)
[2017-07-19] MEDS ORDERED: Levalbuterol HFA INHALER* 1 PUFF MDI INH PRN (16:46)
[2017-07-19] MEDS: Mometasone/Formoter 200/5 MDI INH SCH (19:39)
[2017-07-19] MEDS ORDERED: Acetaminophen ADULT LIQ* 650 MG/20.3 ML UDC PO PRN (22:38)
[2017-07-20 05:00] VITALS: BP 119/63
[2017-07-20] MEDS: Mometasone/Formoter 200/5 MDI INH SCH (08:39)
[2017-07-20 09:13] LABS: Albumin 2.1 g/dL (3.2-5.2); BUN/Creatinine Ratio 45.5 (8-20); Calcium 7.6 mg/dL (8.6-10.3); EGFR Non-African American 276.8 (>60); Globulin 2.6 g/dL (2-4); Magnesium 1.9 mg/dL (1.9-2.7); Potassium 3.8 mmol/L (3.5-5.0); Total Bilirubin 1.3 mg/dL (0.2-1.0); Total Protein 4.7 g/dL (6.4-8.9)
[2017-07-20 09:56] LABS: Hematocrit 25 % (42-52); Hemoglobin 8.3 g/dl (14.0-18.0); Mean Corpuscular HGB Conc 34 g/dl (31-36); Mean Corpuscular Hemoglobin 29 pg (27-31); Mean Corpuscular Volume 87 fL (80-94); Mean Platelet Volume 8 um3 (7.4-10.4); Red Blood Count 2.85 10^6/ul (4.0-5.4); Red Cell Distribution Width 16 % (10.5-15); White Blood Count 24.1 10^3/ul (3.5-10.8)
[2017-07-20 09:58] LABS: Comments Flag Yes
--- NOTE | 2017-07-20 15:06 | DS ---
DISCHARGE SUMMARY: DATE OF ADMISSION: 07/19/17 DATE OF DISCHARGE: 07/20/17 REASON FOR ADMISSION: GI blood loss from locally advanced esophageal carcinoma. HISTORY OF PRESENT ILLNESS: Mr. Vail is a 56-year-old male who was diagnosed in February of 2017 with a biopsy-proven adenocarcinoma of the esophagus. He delayed therapy on multiple occasions due to wanting to be stronger. He was recently hospitalized with hematemesis and he required 4 units of packed red blood cells. At that time, we did decide to start on a radiation therapy course. He received his first dose of radiation therapy yesterday and is planned to start chemotherapy on 07/23/17 with carboplatin and Taxol, weekly during the radiation. At the time of his first radiation visit yesterday, he did receive his radiation but was found to have a hemoglobin of 5.3. He was extremely weak and fatigued and somewhat dizzy. Decision was made that he would need to be receiving 4 units of packed red blood cells and to do so, we would need to admit him to the hospital overnight. He has continued to have vomiting up of small amounts of bloody hematuria occurring on a daily basis since his last hospitalization. He has continued to have black stools. He has been receiving his tube feedings with Glucerna at 40 mL/hour, and reports he is unable to tolerate anything at a more rapid rate. PHYSICAL EXAMINATION: A 56-year-old male who appears weak and fatigued with no acute distress. Vital Signs: Currently stable at the time of discharge with a blood pressure of 119/63 versus blood pressure in the 90s last evening. Pulse 100 which is similar to that on admission, afebrile. HEENT: Slightly dry mucous membranes. Heart: Regular rate and rhythm without murmurs, rubs, or gallops. Lungs: Clear. Abdomen: Soft, nontender without masses or organomegaly. J-tube site looks good and he has a port site on the upper chest also looks fine. This was placed just 4 days ago. Extremities: No edema. LABORATORY STUDIES: CBC: White count 24,100, hematocrit 25, hemoglobin 8.3, platelet count 388,000. Hemoglobin has risen from 5.4 yesterday to 8.3 today. Chemistry Studies: Sodium 134, potassium 3.8, chloride 105, bicarbonate 25, BUN 15, creatinine 0.33, glucose 180, albumin of 2.1, which is actually down from recent levels, including approximately 2.5 during the admission here 2 weeks ago with his prior GI bleed. DISCHARGE DIAGNOSES: 1. GI bleed secondary to a locally advanced and bleeding esophageal carcinoma. Recently, re-scoped 2 weeks ago there was no other source of GI blood loss was seen. 2. Radiation therapy commenced, 07/19/17, with chemotherapy to start later this week. 3. Asthma. 4. Marked dysphagia/odynophagia and inability to take anything in by mouth. 5. Malnutrition. 6. J-tube feed with Jevity 1.5 at 40 mL an hour. MEDICATIONS AT THE TIME OF DISCHARGE: Include: 1. Dulera 200/5 MDI one puff b.i.d. 2. Advair b.i.d. 3. Glucerna 40 mL/hour up to 1.5 calories/mL. The patient is asked to follow up in our office in 3 days' time for further labs including CBC and basic metabolic profile and potential for further transfusion. Also at that time, we will be starting his carboplatin and Taxol. He and his have been insistent that it is best for them that his chemotherapy be delivered on Fridays. In the interim, he will continue on radiation therapy and will have his second dose of radiation therapy today before leaving the [facility]. [id number]/[facility] #: [id number] MTDD
== END 2017-07-20 13:45 | disposition home or self-care (01) ==
LOC: MED 16:36
PROVIDERS: ADMIT Internal Medicine Hematology & Oncology; ATTEND Internal Medicine Hematology & Oncology
DX: D62 Acute posthemorrhagic anemia (principal); C15.9 Malignant neoplasm of esophagus, unspecified; J45.909 Unspecified asthma, uncomplicated; R13.10 Dysphagia, unspecified; E46 Unspecified protein-calorie malnutrition; Z93.4 Other artificial openings of gastrointestinal tract status; E11.9 Type 2 diabetes mellitus without complications
CPT/HCPCS: 36415; 80053; 83735; 85027; 94640; 94760; 99225; A9270-GY; G0378; J1642